=== PATIENT | male | born 1970 | race Caucasian/White ===

== ENCOUNTER 2018-01-20 13:39 | Emergency (ER) | END 2018-01-20 15:36 | disposition left against medical advice (07) ==

== ENCOUNTER 2019-02-23 05:54 | Observation (INO) | payer BC, OTHER ==
[~2019-02-23] VITALS: Ht 160 cm; Wt 92.5 kg
[2019-02-23] MEDS ORDERED: ASPIRIN 325 MG TAB PO STA (06:39)
--- NOTE | 2019-02-23 06:42 | ERD ---
ER Documentation Chief Complaint Chief Complaint CP X'S 1 DAY HPI 48-year-old male with history of diabetes, hypertension hyperlipidemia presents to the ED complaining of a 1 day history of intermittent episodes of sharp, nonradiating, substernal chest pain lasting approximately a minute. No accompanying nausea, vomiting, shortness of breath or diaphoresis. ROS All systems reviewed and are negative except as per history of present illness. Medications Home Meds Reported Medications Linagliptin/Metformin HCl (Jentadueto Xr 2.5 mg-1,000 mg) 1 Each Tab.bp.24h, 1 EACH PO QAM, TAB 02/23/19 Lisinopril* (Lisinopril*) 10 Mg Tablet, 10 MG PO DAILY, #30 TAB 02/23/19 Simvastatin* (Zocor*) 40 Mg Tablet, 40 MG PO QHS, #30 TAB 02/23/19 Allergies Allergies: Coded Allergies: No Known Allergy (Unverified , 02/23/19) PMhx/Soc Reviewed in chart. As per HPI. History of Surgery: No Anesthesia Reaction: No Hx Neurological Disorder: No Hx Respiratory Disorders: No Hx Cardiac Disorders: Yes (Hypertension) Hx Psychiatric Problems: No Hx Miscellaneous Medical Probl: Yes (Diabetes and hyperlipidemia) Hx Alcohol Use: Yes (Socially) Hx Substance Use: No Hx Tobacco Use: No FmHx Father: [place] at the age of 60. Leukemia. Physical Exam Vitals Vital Signs Date Temp Pulse Resp B/P (MAP) Pulse Ox O2 O2 Flow FiO2 Time Delivery Rate 02/23/19 77 16 140/89 98 Room Air 09:00 (106) 02/23/19 76 12 125/86 100 Room Air 08:15 (99) 02/23/19 78 14 128/93 98 Room Air 06:33 (105) 02/23/19 97.7 88 18 148/91 97 05:55 (110) Physical Exam Const: Mild distress, anxious Head: Atraumatic Eyes: Normal Conjunctiva ENT: Normal External Ears, Nose and Mouth. Neck: Full range of motion. No meningismus. No lymphadenopathy or tenderness. No JVD. Resp: Breath sounds equal and clear to auscultation bilaterally Cardio: Regular rate and rhythm, no murmurs Chest Wall: Nontender. No ecchymosis or bruising. Abd: Soft, non tender, non distended. No rebound or guarding. No masses or abnormal pulsations. Normal bowel sounds Skin: No petechiae or rashes Back: No midline or flank tenderness Ext: No cyanosis, or edema. Pulses 4+ in all extremities Neur: Awake and alert. Cranial nerves II through XII are grossly intact. No focal deficit observed. Psych: Cooperative. Patient appears anxious but not depressed. Result Diagram: 02/23/19 0643 02/23/19 0643 Results 24 hrs Laboratory Tests Test 02/23/19 06:43 White Blood Count 6.8 10^3/ul Red Blood Count 4.45 10^6/ul Hemoglobin 13.0 g/dl Hematocrit 39.0 % Mean Corpuscular Volume 87.6 fl Mean Corpuscular Hemoglobin 29.2 pg Mean Corpuscular Hemoglobin Concent 33.3 g/dl Red Cell Distribution Width 11.9 % Platelet Count 222 10^3/UL Mean Platelet Volume 9.1 fl Immature Granulocytes % 0.300 % Neutrophils % 66.8 % Lymphocytes % 20.4 % Monocytes % 9.3 % Eosinophils % 2.8 % Basophils % 0.4 % Nucleated Red Blood Cells % 0.0 /100WBC Immature Granulocytes # 0.020 10^3/ul Neutrophils # 4.5 10^3/ul Lymphocytes # 1.4 10^3/ul Monocytes # 0.6 10^3/ul Eosinophils # 0.2 10^3/ul Basophils # 0.0 10^3/ul Nucleated Red Blood Cells # 0.0 10^3/ul Sodium Level 142 mmol/L Potassium Level 4.5 mmol/L Chloride Level 106 mmol/L Carbon Dioxide Level 24 mmol/L Anion Gap 12 Blood Urea Nitrogen 11 mg/dl Creatinine 0.68 mg/dl Est Glomerular Filtrat Rate mL/min > 60 mL/min Glucose Level 150 mg/dl Hemoglobin A1c 6.7 % Calcium Level 10.1 mg/dl Troponin I 0.013 ng/ml Current Medications Medications Dose Sig/Aide Start Time Status Last (Trade) Ordered Route PRN Stop Time Admin Dose Reason Admin Aspirin 325 mg ONCE STAT 02/23/19 DC 02/23/19 (Aspirin) PO 06:39 02/23/19 06:58 06:40 Procedures/MDM DOCUMENTS REVIEWED: ED nurse, prior records LAB INTERPRETATION: EKG: Time: 0600. Sinus rhythm. Ventricular rate 86, normal IA and QRS intervals. No acute ST segment elevation or depression. No axis deviation or ectopy. My Interpretation: Normal EKG IMAGING: Cardiomegaly. No effusions or infiltrates. No mediastinal widening. My interpretation. MEDICAL DECISION MAKIN-year-old male with history of diabetes, hypertension hyperlipidemia presents to the ED complaining of a 1 day history of intermittent episodes of chest pain lasting approximately a minute. CBC negative for anemia, leukocytosis or thrombocytopenia. Chemistry negative for electrolyte abnormalities, renal insufficiency or hyperglycemia. Troponin is 0.013. EKG negative for ischemic changes, dysrhythmia or heart block. Chest x-ray reveals no evidence of pneumonia, pleural effusion or CHF. The patient presents with chest pain and I considered pulmonary embolism, aortic dissection, pneumothorax, gastritis/GERD, anxiety and musculoskeletal pain among other diagnoses. Evaluation for acute coronary syndrome was performed. The HEART score was utilized for risk stratification and found to be = 4. Patient with multiple risk factors presents with chest pain at moderate risk for cardiac etiology. Patient be admitted to telemetry observation for further risk stratification, evaluation and management. PATIENT CARE TRANSITIONED: Time: 08:42, Dr. Keller. Counseled patient regarding diagnosis, diagnostic results and plan for a dmission. Departure Diagnosis: Primary Impression: Chest pain with moderate risk for cardiac etiology Additional Impressions: Diabetes mellitus type 2 in obese Hypertension Hypertension type: essential hypertension Qualified Codes: I10 - Essential (primary) hypertension Hyperlipidemia Hyperlipidemia type: unspecified Qualified Codes: E78.5 - Hyperlipidemia, unspecified Condition: Serious STEPHANIE DIAZ MD February 23, 2019 06:42
[2019-02-23] MEDS ORDERED: SIMV40TA2 PO (09:09)
[2019-02-23] MEDS ORDERED: LISI10TA2 PO (09:11)
[2019-02-23] MEDS ORDERED: LINA1TAB7 PO (09:12)
[2019-02-23] MEDS ORDERED: ONDANSETRON 4 MG INJ IV PRN ×2 (09:30→15:00)
[2019-02-23] MEDS ORDERED: ACETAMINOPHEN 325 MG TAB PO PRN (09:30)
[2019-02-23] MEDS ORDERED: hydrALAzine 20 MG INJ IV PRN ×2 (15:00→21:30)
--- NOTE | 2019-02-23 16:00 | HP ---
DATE OF ADMISSION: 02/23/2019 PRESENTING COMPLAINT: Chest pain. HISTORY OF PRESENTING COMPLAINT: A 48-year-old male with a past medical history of high blood pressure and diabetes as well as dyslipidemia who presents to us with a 1-day history of worsening left-sided chest pain. The patient described symptoms more as pressure and a feeling of an elephant sitting on his chest. Does not have pain that is radiating to his arm or his jaw but he does have some shortness of breath with his symptoms. He has had similar symptoms in the past about a year ago, but usually the symptoms resolve on their own and he had no other problems until now. He was driving yesterday when he first felt the pain and even later when he was at home working on his computer, pain came in again. Overnight, the pain woke him up from his sleep. At that point, he decided to come to the emergency room today for evaluation. PAST MEDICAL HISTORY: 1. Hypertension. 2. Diabetes. 3. Dyslipidemia. 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 ALLERGIES: NO KNOWN DRUG ALLERGIES. SOCIAL HISTORY: Denies tobacco use but occasionally does the Hookah and drinks alcohol socially but denies illicit drug use. FAMILY HISTORY: Positive for [place] in his father at the age of 60. REVIEW OF SYSTEMS: A 12-point review of systems was done. Pertinent findings are as noted in the HPI. PHYSICAL EXAMINATION VITAL SIGNS: Temperature 97.7, pulse 76, respirations 12, blood pressure 125/86, saturations 100% on room air. GENERAL: Patient is alert and oriented, in no distress. HEENT: Head is normocephalic without evidence of trauma. Mucous membranes are moist. His right pupil is reactive. Left eye had trauma and he does have a prosthetic eye. Posterior pharynx clear of erythema and exudate. NECK: Supple, nontender, without JVD. CHEST: Clear to auscultation. Palpation of the chest wall does not reproduce pain. SKIN: Devoid of rash or jaundice. ABDOMEN: Soft, nontender, nondistended. LOWER EXTREMITIES: Negative for edema. NEUROLOGIC: He has no gross focal deficit. PSYCHIATRIC: Calm, cooperative with exam. LABORATORY VALUES: CBC: His hemoglobin is on the low side at 13, borderline unremarkable. Basic metabolic profile was unremarkable. So far, we have 2 negative troponins. IMAGING STUDIES: EKG was reviewed by myself showed normal sinus rhythm, normal rate. Chest x-ray reviewed also by myself showed mild cardiomegaly without any acute clinical findings. ASSESSMENT: A 48-year-old male who presents to us with recurrent left-sided chest pain with risk factors of high blood pressure and positive family history of premature coronary artery disease who has been admitted for: 1. Chest pain, rule out acute coronary syndrome (ACS). 2. Hypertension. 3. Diabetes mellitus type 2. 4. History of dyslipidemia. 5. Hookah use. 6. Positive family history of earlycoronary artery disease in his parent. 7. Prosthetic L eye PLAN: Admit to telemetry, get a cardiology consultation for stress test, a 2D echocardiogram, complete ACS rule out, also provide supportive care. We will also manage his comorbidities as listed, i.e., high blood pressure and diabetes and any further interventions will depend on his overall clinical course. This plan of care has been discussed with him in detail, questions have been answered. For further information and clarification, please review the patient's chart and my orders. Dictated By: EMMA KIDD MD BA/MAGO Conf#: [id number] DID#: [id number]
[2019-02-23 18:52] VITALS: PULSE 87
[2019-02-23 20:00] VITALS: BP 135/81; PULSE 74; PULSE 82; RESP 20
[2019-02-23] MEDS ORDERED: NON-FORMULARY/PATIENT OWN MED (Simvastatin* (Zocor*) 40 MG) PO SCH (21:00)
[2019-02-23] MEDS: INSULIN ASPART [NOVOLOG] 3 ML PEN SC SCH (21:00)
[2019-02-23] MEDS ORDERED: ATORVASTATIN 10 MG TAB PO SCH (21:00)
[2019-02-23] MEDS ORDERED: ATORVASTATIN 20 MG TAB PO SCH (21:00)
[2019-02-23] MEDS: FAMOTIDINE 20 MG TAB PO SCH (21:19)
[2019-02-23 22:07] VITALS: Ht 160 cm; Wt 92.5 kg
--- NOTE | 2019-02-23 23:46 | CONS ---
DATE OF ADMISSION: 02/23/2019 DATE OF CONSULTATION: 02/23/2019 REASON FOR CONSULTATION: Chest pain, assess for acute coronary syndrome. REQUESTING PHYSICIAN: Dr. Emma Kidd from the hospitalist service. HISTORY OF PRESENT ILLNESS: Mr. Mcconnell is a 48-year-old male with a history of hypertension, diabe rm mellitus and dyslipidemia who presents with 1 day of substernal chest pain, describes a pressure- like pain with as though someone is sitting on his chest with some radiation to his arm and inability to catch his breath. 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 The patient presented to the emergency department. Upon arrival, temperatu re 97.7, blood pressure 140/91, pulse 88, respiratory rate 18 and sat 97%. The patient's labs reveal ed a white count 6.8, hemoglobin 13 and platelet count 222. Sodium 142, potassium 4.5, creatinine 0. 6, BUN 11. Troponin negative. Hemoglobin A1c of 6.7. The patient underwent a chest x-ray revealing mild cardiomegaly. The patient's electrocardiogram revealed normal sinus rhythm, rate of 86, normal axis and intervals, nonspecific ST and T abnormalities. The patient was treated with aspirin and no w is admitted to the floor. PAST MEDICAL HISTORY: As above in HPI. MEDICATIONS CURRENTLY IN HOSPITAL: 1. Zestril 10 mg daily. 2. Aspirin 81 mg daily. 3. Lantus. 4. Pepcid 20 mg b.i.d. 5. Lipitor 20 mg at bedtime. 6. Insulin sliding scale. 7. Zofran p.r.n. 8. Hydralazine p.r.n. 9. Tylenol p.r.n. ALLERGIES: NO KNOWN DRUG ALLERGIES. SOCIAL HISTORY: No current tobacco, social ETOH, no illicit drug use. FAMILY HISTORY: No sudden cardiac or early CAD. REVIEW OF SYSTEMS: As above in HPI. CONSTITUTIONAL: No fevers, chills. PULMONARY: No current shortness of breath. CARDIOVASCULAR: Chest pain. GASTROINTESTINAL: No vomiting. GENITOURINARY: No hematuria. MUSCULOSKELETAL: Degenerative joint disease. PSYCHIATRIC: No documented psych history. NEUROLOGIC: No documented history of CVA. PHYSICAL EXAMINATION VITAL SIGNS: Temperature of 98.9, blood pressure 127/89, pulse 83, respiratory rate 16 and satting 9 9%. GENERAL: The patient is alert, awake, in no acute distress. NECK: JVP approximately 8 to 9 cm of water. CHEST: Fair air movement throughout. HEART: Regular rate and rhythm. Normal S1, S2, I/ systolic murmur, nondisplaced PMI. ABDOMEN: Positive bowel sounds, soft. EXTREMITIES: No significant pitting edema, 1+ pulses bilateral posterior tibial. LABORATORY DATA: Most recently from today, with a troponin negative x2. IMAGING STUDIES: As above in HPI. No further imaging studies for my review at this time. ECG: As above in HPI. No further electrocardiograms for my review at this time. IMPRESSION: 1. Chest pain, assess for acute coronary syndrome. 2. Hypertension, reasonable control. 3. Dyslipidemia. 4. Diabetes mellitus. 5. Anemia, mild. RECOMMENDATIONS: 1. At this time, would admit patient to telemetry monitoring to follow rhythm and rates closely. 2. Complete the patient's rule out for myocardial infarction to ensure the patient's chest pain was not due to an acute coronary syndrome such as acute myocardial infarction. 3. Give patient's sublingual nitroglycerin for any recurrent episodes of chest pain. 4. Continue the patient's current statin therapy and adjust it according to a fasting lipid panel ch ecked. 5. Continue the patient's Zestril at this time and continue the patient's aspirin for prophylaxis fr om cardiovascular events. 6. We will follow the patient's 2D echo ordered for assessment of ejection fraction, wall motion, ru le out any major valve abnormalities and given the patient's multiple cardiac risk factors, I believe the patient will benefit from further risk stratification inpatient and if the patient ruled out for myocardial infarction, we will place patient in for a stress test to take place in the morning. Thank you for allowing me to take part in the care of this patient. I will continue to follow very c losely with you. Further recommendations will be made as the patient progresses through his [facility] clinical course. Dictated By: RONNA WOMACK/MAGO Conf#: [id number] DID#: [id number] CC: EMMA KIDD MD;*EndCC*
[2019-02-24] VITALS (11 sets, daily range): BP systolic 98–123; BP diastolic 55–83; PULSE 66–94; RESP 18–20
[2019-02-24] MEDS ORDERED: ACCU-CHEK XX SCH (02:00)
[2019-02-24] MEDS: INSULIN ASPART [NOVOLOG] 3 ML PEN SC SCH ×3 (07:55→17:29)
[2019-02-24] MEDS ORDERED: INSULIN GLARGINE [LANTus] (100 UNITS/ML) SYG SC SCH (08:00)
[2019-02-24] MEDS: FAMOTIDINE 20 MG TAB PO SCH (08:17)
[2019-02-24] MEDS ORDERED: LISINOPRIL 10 MG TAB PO SCH (09:00)
[2019-02-24] MEDS ORDERED: ASPIRIN (EC) 81 MG TAB PO SCH (09:00)
[2019-02-24] MEDS ORDERED: REGADENOSON 0.4 MG/5 ML SYG ONE (12:17)
--- NOTE | 2019-02-24 12:28 | CONS ---
Assessment/Plan Assessment/Plan Hospital Course (Demo Recall) IMPRESSION: 1. Chest pain, assess for acute coronary syndrome.-neg trop x 3. Intermittent chest pain since admit 2. Hypertension, reasonable control. 3. Dyslipidemia. 4. Diabetes mellitus. 5. Anemia, mild. Recc: -Tele -Contin ACEI/statin -lexiscan stress test today -add oral nitrates Consultation Date/Type/Reason Admit Date/Time February 23, 2019 at 09:04 Initial Consult Date 02/23/19 Type of Consult Cardiology Reason for Consultation chest pain Requesting Provider: EMMA KIDD Date/Time of Note DATE: 02/24/19 TIME: 12:25 Exam/Review of Systems Vital Signs Vitals Vital Signs Date Temp Pulse Resp B/P (MAP) Pulse Ox O2 O2 Flow FiO2 Time Delivery Rate 02/24/19 70 08:00 02/24/19 98.3 18 123/83 95 Room Air 07:10 (96) Intake and Output 02/23/19 02/23/19 02/24/19 1515:00 23:00 07:00 IntakeIntake Total 360 ml BalanceBalance 360 ml Exam Exam Review of Systems: CONSTITUTIONAL: No fevers, chills. PULMONARY: No sob CARDIOVASCULAR: No chest pain/palpitations GASTROINTESTINAL: No nausea/vomiting. GENITOURINARY: No hematuria/dysuria. MUSCULOSKELETAL: No myagias/arthalgias. PSYCHIATRIC: The patient denies depression. NEUROLOGIC: No weakness Constitutional: alert Psych: no complaints Head: normocephalic ENMT: mucosa pink and moist Neck: supple, jvd (9 cm water) Respiratory: clear to auscultation Cardiovascular: regular rate and rhythm Gastrointestinal: soft, non-tender Musculoskeletal: muscle tone (normal) Extremities: edema (none) Neurological: other (No focal deficits) Labs Result Diagram: 02/24/19 0605 02/24/19 0605 Results 24hrs Laboratory Tests Test 02/23/19 12:51 02/23/19 17:32 02/23/19 19:01 02/23/19 20:25 Creatine Kinase 152 135 Creatine Kinase Index 0.8 1.0 Creatinine Kinase MB 1.25 1.32 (Mass) Troponin I < 0.012 < 0.012 Bedside Glucose 163 117 Test 02/24/19 06:05 02/24/19 08:19 02/24/19 10:52 White Blood Count 5.9 Red Blood Count 4.34 L Hemoglobin 12.6 L Hematocrit 38.0 L Mean Corpuscular Volume 87.6 Mean Corpuscular 29.0 Hemoglobin Mean Corpuscular 33.2 Hemoglobin Concent Red Cell Distribution 11.9 Width Platelet Count 201 Mean Platelet Volume 9.1 Immature Granulocytes % 0.300 Neutrophils % 60.7 Lymphocytes % 26.2 Monocytes % 9.4 Eosinophils % 2.9 Basophils % 0.5 Nucleated Red Blood 0.0 Cells % Immature Granulocytes # 0.020 Neutrophils # 3.6 Lymphocytes # 1.5 Monocytes # 0.6 Eosinophils # 0.2 Basophils # 0.0 Nucleated Red Blood 0.0 Cells # Sodium Level 139 Potassium Level 4.5 Chloride Level 104 Carbon Dioxide Level 26 Anion Gap 9 Blood Urea Nitrogen 13 Creatinine 0.75 Est Glomerular Filtrat > 60 Rate mL/min Glucose Level 137 Calcium Level 9.1 Magnesium Level 1.9 Total Bilirubin 0.7 Direct Bilirubin 0.00 Indirect Bilirubin 0.7 Aspartate Amino 23 Transf (AST/SGOT) Alanine 27 Aminotransferase (ALT/SG PT) Alkaline Phosphatase 40 L Total Protein 7.2 Albumin 4.2 Triglycerides Level 519 H Cholesterol Level 234 H LDL Cholesterol, 97 Calculated HDL Cholesterol 33 Cholesterol/HDL Ratio 7.0 Thyroid Stimulating 1.460 Hormone (TSH) Bedside Glucose 141 128 Medications Medications Current Medications Lisinopril (Zestril) 10 mg DAILY PO Last administered on 02/24/19at 08:18; Admin Dose 10 MG; Start 02/24/19 at 09:00 Insulin Glargine (Lantus) 18 units DAILY@0800 SC ; Start 02/24/19 at 08:00 Diagnostic Test (Pha) (Accu-Chek) 1 02 XX ; Start 02/24/19 at 02:00 Insulin Aspart (Novolog Insulin Pen) NOVOLOG *MILD* ALGORITHM WITH MEALS BEDTIME SC ; Start 02/23/19 at 18:00 Famotidine (Pepcid) 20 mg BID PO Last administered on 02/24/19at 08:17; Admin Dose 20 MG; Start 02/23/19 at 21:00 Ondansetron HCl (Zofran Inj) 4 mg Q6H PRN IV NAUSEA AND/OR VOMITING; Start 02/23/19 at 15:00 Aspirin (Halfprin) 81 mg DAILY PO Last administered on 02/24/19at 08:17; Admin Dose 81 MG; Start 02/24/19 at 09:00 Atorvastatin Calcium (Lipitor) 20 mg DAILY@21 PO Last administered on 02/23/19at 21:19; Admin Dose 20 MG; Start 02/23/19 at 21:00 Hydralazine HCl (Apresoline) 10 mg Q4 PRN IV sbp>160mmhg; Start 02/23/19 at 21:30 RONNA ALVAREZ February 24, 2019 12:28
[2019-02-24] MEDS ORDERED: GLUCOSE GEL 15 GRAM TUBE BUCCAL PRN (13:00)
[2019-02-24] MEDS ORDERED: GLUCAGON 1 MG INJ IM PRN (13:00)
[2019-02-24] MEDS ORDERED: GLUCOSE GEL 15 GRAM TUBE PO PRN ×2 (13:00)
[2019-02-24] MEDS ORDERED: DEXTROSE 50% 50 ML SYRINGE IV PRN ×2 (13:00)
[2019-02-24] MEDS ORDERED: ISOSORBIDE DINITRATE 10 MG TAB PO SCH (13:00)
--- NOTE | 2019-02-24 13:15 | PN ---
Date/Time of Note Date/Time of Note DATE: 02/24/19 TIME: 13:14 Assessment/Plan VTE Prophylaxis Risk score (from Ns)>0 risk: 2 SCD applied (from Ns): Yes Pharmacological prophylaxis: NA/contraindicated Pharm contraindication: low risk/ambulating Lines/Catheters IV Catheter Type (from Nrs): Peripheral IV Urinary Cath still in place: No Assessment/Plan Hospital Course A 48-year-old male who presents to us with recurrent left-sided chest pain with risk factors of high blood pressure and positive family history of premature coronary artery disease who has been admitted for: 1. Chest pain, rule out acute coronary syndrome (ACS). 2. Hypertension. 3. Diabetes mellitus type 2. 4. Dyslipidemia. 5. Hookah use. 6. Positive family history of premature coronary artery disease in his parent. Plan: lexiscan stress test today d/c home on asa/ nitrates / statin if negative. Counselled to quit Hookah use Result Diagram: 02/24/1960402/24/19604 Results 24hrs Laboratory Tests Test 02/23/19 17:32 02/23/19 19:01 02/23/19 20:25 02/24/19 06:05 Bedside Glucose 163 117 Creatine Kinase 135 Creatine Kinase Index 1.0 Creatinine Kinase MB 1.32 (Mass) Troponin I < 0.012 White Blood Count 5.9 Red Blood Count 4.34 L Hemoglobin 12.6 L Hematocrit 38.0 L Mean Corpuscular Volume 87.6 Mean Corpuscular 29.0 Hemoglobin Mean Corpuscular 33.2 Hemoglobin Concent Red Cell Distribution 11.9 Width Platelet Count 201 Mean Platelet Volume 9.1 Immature Granulocytes % 0.300 Neutrophils % 60.7 Lymphocytes % 26.2 Monocytes % 9.4 Eosinophils % 2.9 Basophils % 0.5 Nucleated Red Blood 0.0 Cells % Immature Granulocytes # 0.020 Neutrophils # 3.6 Lymphocytes # 1.5 Monocytes # 0.6 Eosinophils # 0.2 Basophils # 0.0 Nucleated Red Blood 0.0 Cells # Sodium Level 139 Potassium Level 4.5 Chloride Level 104 Carbon Dioxide Level 26 Anion Gap 9 Blood Urea Nitrogen 13 Creatinine 0.75 Est Glomerular Filtrat > 60 Rate mL/min Glucose Level 137 Calcium Level 9.1 Magnesium Level 1.9 Total Bilirubin 0.7 Direct Bilirubin 0.00 Indirect Bilirubin 0.7 Aspartate Amino 23 Transf (AST/SGOT) Alanine 27 Aminotransferase (ALT/SG PT) Alkaline Phosphatase 40 L Total Protein 7.2 Albumin 4.2 Triglycerides Level 519 H Cholesterol Level 234 H LDL Cholesterol, 97 Calculated HDL Cholesterol 33 Cholesterol/HDL Ratio 7.0 Thyroid Stimulating 1.460 Hormone (TSH) Test 02/24/19 08:19 02/24/19 10:52 Bedside Glucose 141 128 Subjective 24 Hr Interval Summary Free Text/Dictation no more CP Exam/Review of Systems Exam Vitals Vital Signs Date Temp Pulse Resp B/P (MAP) Pulse Ox O2 O2 Flow FiO2 Time Delivery Rate 02/24/19 70 08:00 02/24/19 98.3 18 123/83 95 Room Air 07:10 (96) Intake and Output 02/23/19 02/23/19 02/24/19 1414:59 22:59 06:59 IntakeIntake Total 360 ml BalanceBalance 360 ml Exam General: A&O x3, answering questions appropriately HEENT: NC/ AT. PERRL. EOM intact Neck: supple CVS: S1, S2, RRR. no murmurs. no pain on chest wall palpation Lungs: CTA b/l. no wheezing or rhonchi Abd: soft, nontender, +BS Ext: moving all extremities skin: no rashes Results Results 24hrs Laboratory Tests Test 02/23/19 17:32 02/23/19 19:01 02/23/19 20:25 02/24/19 06:05 Bedside Glucose 163 117 Creatine Kinase 135 Creatine Kinase Index 1.0 Creatinine Kinase MB 1.32 (Mass) Troponin I < 0.012 White Blood Count 5.9 Red Blood Count 4.34 L Hemoglobin 12.6 L Hematocrit 38.0 L Mean Corpuscular Volume 87.6 Mean Corpuscular 29.0 Hemoglobin Mean Corpuscular 33.2 Hemoglobin Concent Red Cell Distribution 11.9 Width Platelet Count 201 Mean Platelet Volume 9.1 Immature Granulocytes % 0.300 Neutrophils % 60.7 Lymphocytes % 26.2 Monocytes % 9.4 Eosinophils % 2.9 Basophils % 0.5 Nucleated Red Blood 0.0 Cells % Immature Granulocytes # 0.020 Neutrophils # 3.6 Lymphocytes # 1.5 Monocytes # 0.6 Eosinophils # 0.2 Basophils # 0.0 Nucleated Red Blood 0.0 Cells # Sodium Level 139 Potassium Level 4.5 Chloride Level 104 Carbon Dioxide Level 26 Anion Gap 9 Blood Urea Nitrogen 13 Creatinine 0.75 Est Glomerular Filtrat > 60 Rate mL/min Glucose Level 137 Calcium Level 9.1 Magnesium Level 1.9 Total Bilirubin 0.7 Direct Bilirubin 0.00 Indirect Bilirubin 0.7 Aspartate Amino 23 Transf (AST/SGOT) Alanine 27 Aminotransferase (ALT/SG PT) Alkaline Phosphatase 40 L Total Protein 7.2 Albumin 4.2 Triglycerides Level 519 H Cholesterol Level 234 H LDL Cholesterol, 97 Calculated HDL Cholesterol 33 Cholesterol/HDL Ratio 7.0 Thyroid Stimulating 1.460 Hormone (TSH) Test 02/24/19 08:19 02/24/19 10:52 Bedside Glucose 141 128 Medications Medication Current Medications Lisinopril (Zestril) 10 mg DAILY PO Last administered on 02/24/19at 08:18; Admin Dose 10 MG; Start 02/24/19 at 09:00 Insulin Glargine (Lantus) 18 units DAILY@0800 SC ; Start 02/24/19 at 08:00 Diagnostic Test (Pha) (Accu-Chek) 1 ea 02 XX ; Start 02/24/19 at 02:00 Insulin Aspart (Novolog Insulin Pen) NOVOLOG *MILD* ALGORITHM WITH MEALS BEDTIME SC ; Start 02/23/19 at 18:00 Famotidine (Pepcid) 20 mg BID PO Last administered on 02/24/19at 08:17; Admin Dose 20 MG; Start 02/23/19 at 21:00 Ondansetron HCl (Zofran Inj) 4 mg Q6H PRN IV NAUSEA AND/OR VOMITING; Start 02/23/19 at 15:00 Aspirin (Halfprin) 81 mg DAILY PO Last administered on 02/24/19at 08:17; Admin Dose 81 MG; Start 02/24/19 at 09:00 Atorvastatin Calcium (Lipitor) 20 mg DAILY@21 PO Last administered on 02/23/19at 21:19; Admin Dose 20 MG; Start 02/23/19 at 21:00 Hydralazine HCl (Apresoline) 10 mg Q4 PRN IV sbp>160mmhg; Start 02/23/19 at 21:30 Isosorbide Dinitrate (Isordil) 10 mg TID PO ; Start 02/24/19 at 13:00 Miscellaneous Information 1 ea NOTE XX ; Start 5/2/19 at 13:00 Glucose (Glutose) 15 gm Q15M PRN PO DECREASED GLUCOSE; Start 02/24/19 at 13:00 Glucose (Glutose) 22.5 gm Q15M PRN PO DECREASED GLUCOSE; Start 02/24/19 at 13:00 Dextrose (D50w Syringe) 25 ml Q15M PRN IV DECREASED GLUCOSE; Start 02/24/19 at 13:00 Dextrose (D50w Syringe) 50 ml Q15M PRN IV DECREASED GLUCOSE; Start 02/24/19 at 13:00 Glucagon (Glucagen) 1 mg Q15M PRN IM DECREASED GLUCOSE; Start 02/24/19 at 13:00 Glucose (Glutose) 15 gm Q15M PRN BUCCAL DECREASED GLUCOSE; Start 02/24/19 at 13:00 EMMA KIDD February 24, 2019 13:15
[2019-02-24] MEDS ORDERED: ACETAMINOPHEN 325 MG TAB PO PRN (14:30)
[2019-02-24] MEDS ORDERED: ATOR40TA68 PO (15:12)
[2019-02-24] MEDS ORDERED: ISOS10TA2 PO (15:12)
[2019-02-24] MEDS ORDERED: ASPI-1044 PO (15:12)
--- NOTE | 2019-02-24 15:14 | PDOCDIS ---
Discharge Instructions CONDITION [id number] Patient Condition: Thxut2o Stable HOME CARE INSTRUCTIONS: [id number] Diet Instructions: Uhhiz9h Low Fat /Cholesterol [id number] Special Diet: Wxian0q diabetic diet ACTIVITY: [id number] Activity Restrictions: Dcokl9g Slowly Increase Activity Rest between Activity FOLLOW UP/APPOINTMENTS Follow-up Plan 1. you may followup with Dr Gonzalez for Cardiology Please followup with Dr Gonzalez for cardiology Name, Degree: Robb Gonzalez MD Specialty: Cardiology Comments: Office Address: [address] [place] [id number] Office Office Assistant Speech Language Pathologist: Ashlie Vera 2. Also Followup with your primary doctor within the next 1-2 weeks. If you don't have one please let someone know, we can give you resources that may help you pick one. You may call Dr Len Hollis's office. he's accepting new patients Name, Degree: Len Hollis MD Specialty: Internal Medicine Comments: Office Address: [address] [place] [id number] Office Office You may also call your insurance company to assign one to you. 3. Review your medication list with your nurse before leaving and if you need new prescriptions please let your nurse know. 4. I may have made changes to your home medications or given you new prescriptions, please let your primary doctor know as well. 5. Stay compliant with your medications and report any side effects to your PCP or pharmacist. 6. Return to the ER if you have any concerns and cannot reach your doctors or call your insurance company, they usually have a nurse that can help you. EMMA KIDD February 24, 2019 15:14
--- NOTE | 2019-02-24 15:16 | DS ---
Date/Time of Note Date/Time of Note DATE: 02/24/19 TIME: 15:14 Discharge Summary Admission/Discharge Info Admit Date/Time February 23, 2019 at 09:04 Discharge Date/Time Discharge Diagnosis 1. Chest pain, rule out acute coronary syndrome (ACS): resolved 2. Hypertension. 3. Diabetes mellitus type 2. 4. Dyslipidemia. 5. Hookah use. 6. Positive family history of premature coronary artery disease in his parent. . Patient Condition: Stable Consults Lisa Procedures See hospital course . Hospital Course A 48-year-old male who presents to us with recurrent left-sided chest pain with risk factors of high blood pressure and positive family history of premature coronary artery disease who has been admitted for: 1. Chest pain, rule out acute coronary syndrome (ACS). 2. Hypertension. 3. Diabetes mellitus type 2. 4. Dyslipidemia. 5. Hookah use. 6. Positive family history of premature coronary artery disease in his parent. Plan: Negative lexiscan stress test d/c home on asa/ nitrates / statin if negative. Counselled to quit Hookah use . Home Meds Reported Medications Linagliptin/Metformin HCl (Jentadueto Xr 2.5 mg-1,000 mg) 1 Each Tab.bp.24h, 1 EACH PO QAM, TAB 02/23/19 Lisinopril* (Lisinopril*) 10 Mg Tablet, 10 MG PO DAILY, #30 TAB 02/23/19 Simvastatin* (Zocor*) 40 Mg Tablet, 40 MG PO QHS, #30 TAB 02/23/19 Follow-up Plan 1. you may followup with Dr Gonzalez for Cardiology Please followup with Dr Gonzalez for cardiology Name, Degree: Robb Gonzalez MD Specialty: Cardiology Comments: Office Address: [id number] [place] [id number] Office Office Universal Banker: Ashlie Jody 2. Also Followup with your primary doctor within the next 1-2 weeks. If you don't have one please let someone know, we can give you resources that may help you pick one. You may call Dr Len Hollis's office. he's accepting new patients Name, Degree: Len Hollis MD Specialty: Internal Medicine Comments: Office Address: [address] [place] [address] [address] [place] [address] Office Office You may also call your insurance company to assign one to you. 3. Review your medication list with your nurse before leaving and if you need new prescriptions please let your nurse know. 4. I may have made changes to your home medications or given you new prescriptions, please let your primary doctor know as well. 5. Stay compliant with your medications and report any side effects to your PCP or pharmacist. 6. Return to the ER if you have any concerns and cannot reach your doctors or call your insurance company, they usually have a nurse that can help you. Primary Care Provider Not On Staff Doctor Time spent on discharge: > 30 minutes Pending Labs Laboratory Tests Test 02/23/19 17:32 02/23/19 19:01 02/23/19 20:25 02/24/19 06:05 Bedside 163 117 Glucose mg/dL (70-220) mg/dL (70-220) Creatine 135 Kinase IU/L (23-200) Creatine Kinase 1.0 Index Creatinine 1.32 Kinase MB ng/ml (0.0-2.4 (Mass) ) Troponin I < 0.012 ng/ml (0.000-0 .120) White Blood 5.9 Count 10^3/ul (4.8-1 0.8) Red Blood 4.34 Count 10^6/ul (4.70- 6.10) Hemoglobin 12.6 g/dl (14.0-18. 0) Hematocrit 38.0 % (42.0-52.0) Mean 87.6 Corpuscular fl (82.0-101.0 Volume ) Mean 29.0 Corpuscular pg (29.0-33.0) Hemoglobin Mean 33.2 Corpuscular g/dl (32.0-37. Hemoglobin Conc 0) ent Red Cell 11.9 Distribution % (11.5-14.5) Width Platelet Count 201 10^3/UL (140-4 15) Mean Platelet 9.1 Volume fl (7.4-10.4) Immature 0.300 Granulocytes % % (0.001-0.429 ) Neutrophils % 60.7 % (39.0-77.0) Lymphocytes % 26.2 % (15.0-51.0) Monocytes % 9.4 % (0.0-11.0) Eosinophils % 2.9 % (0.0-7.0) Basophils % 0.5 % (0.0-2.0) Nucleated Red 0.0 Blood Cells % /100WBC (0.0-0 .0) Immature 0.020 Granulocytes # 10^3/ul (0.0-0 .031) Neutrophils # 3.6 10^3/ul (1.6-7 .5) Lymphocytes # 1.5 10^3/ul (0.8-2 .9) Monocytes # 0.6 10^3/ul (0.3-0 .9) Eosinophils # 0.2 10^3/ul (0.0-0 .5) Basophils # 0.0 10^3/ul (0.0-0 .1) Nucleated Red 0.0 Blood Cells # 10^3/ul (0.0-0 .0) Sodium Level 139 mmol/L (135-14 4) Potassium 4.5 Level mmol/L (3.5-5. 1) Chloride Level 104 mmol/L (97-110 ) Carbon Dioxide 26 Level mmol/L (21-31) Anion Gap 9 (5-13) Blood Urea 13 Nitrogen mg/dl (7-20) Creatinine 0.75 mg/dl (0.61-1. 24) Est Glomerular > 60 Filtrat mL/min (>60) Rate mL/min Glucose Level 137 mg/dl (70-220) Calcium Level 9.1 mg/dl (8.4-10. 2) Magnesium 1.9 Level mg/dl (1.7-2.5 ) Total 0.7 Bilirubin mg/dl (0.2-1.3 ) Direct 0.00 Bilirubin mg/dl (0.00-0. 20) Indirect 0.7 Bilirubin mg/dl (0-1.1) Aspartate Amino 23 Transf (AST/SGO IU/L (15-46) T) Alanine 27 Aminotransferas IU/L (13-69) e (ALT/SGPT) Alkaline 40 Phosphatase IU/L (42-121) Total Protein 7.2 g/dl (6.1-8.1) Albumin 4.2 g/dl (3.3-4.9) Triglycerides 519 Level mg/dl (0-149) Cholesterol 234 Level mg/dl (100-200 ) LDL 97 mg/dl Cholesterol, Calculated HDL 33 Cholesterol mg/dl (28-71) Cholesterol/HDL 7.0 RATIO Ratio Thyroid 1.460 Stimulating MIU/L (0.465-4 Hormone (TSH) .680) Test 02/24/19 08:19 02/24/19 10:52 Bedside 141 128 Glucose mg/dL (70-220) mg/dL (70-220) EMMA KIDD February 24, 2019 15:16
--- NOTE | 2019-02-24 18:24 | RADRPT ---
Echocardiogram Report Patient Name: PASHA MENJIVARPatient ID: [id number] : 1970 (48y 3m)Study Date: 02/24/2019 7:28:43 AM Gender: MAccession #: [id number] Tech: Paul Robertson RUST Location: 526 Ref.Physician: EMMA KIDD Height(Cm): BSA: Weight(Kg): Quality: AdequateAccount #: Procedures: Echocardiographic Report: Transthoracic echocardiogram with complete 2D, M-Mode, and doppler examination. Indications: Chest Pain. Measurements: 2D/M Mode Doppler Measurement Value Normal Range Measurement Value Normal Range LVIDd 2D 4.0 [ 4.2 - 5.8 ] cm AV Peak Marshall 1.3 [ 100.0 - 170.0 ] cm/sec LVIDs 2D 2.6 [ 2.5 - 4.0 ] cm AV Peak PG 7.0 [ 2.0 - 9.0 ] mmHg LVPWd 2D 1.1 [ 0.6 - 1.0 ] cm LVOT Peak Marshall 1.0 [ 70.0 - 110.0 ] cm/sec IVSd 2D 1.2 [ 0.6 - 1.0 ] cm LVOT Peak PG 4.0 [ 2.0 - 6.0 ] mmHg AoR Diam 2D 3.0 [ 2.6 - 3.4 ] cm MV E Peak Marshall 0.7 [ 60.0 - 130.0 ] cm/sec EDV 2D 71.3 [ 62.0 - 150.0 ] ml MV A Peak Marshall 0.6 [ 100.0 - 120.0 ] cm/sec ESV 2D 24.4 [ 21.0 - 61.0 ] ml MV E/A 1.1 [ 0.8 - 1.5 ] ratio EF 2D 65.8 [ 52.0 - 72.0 ] percent MV Decel Time 165 [ 104 - 258 ] msec LA Dimen 2D 3.0 [ 3.0 - 4.0 ] cm Lat E` Marshall 0.1 [ 10.0 - 15.0 ] cm/sec Lateral E/E` 6.7 [ 1.0 - 2.0 ] ratio MV E/A 1.1 [ 0.8 - 1.5 ] ratio TR Peak Marshall 2.2 [ 100.0 - 280.0 ] cm/sec TR Peak PG 19.0 mmHg RVSP 22.0 [ 10.0 - 36.0 ] mmHg RA Pressure 3.0 mmHg Findings: Left Ventricle: Normal left ventricular systolic function. Normal left ventricular cavity size. Mild concentric left ventricular hypertrophy. Ejection fraction is visually estimated at 55 %. Tissue Doppler/Mitral Doppler indices are within normal limits. Right Ventricle: Normal right ventricular size. Normal right ventricular systolic function. Left Atrium: The left atrium is normal in size. Right Atrium: The right atrium is normal in size. Mitral Valve: Normal appearance and function of the mitral valve with trace physiologic regurgitation. Aortic Valve: Normal appearance of the aortic valve. No significant aortic stenosis or insufficiency. Tricuspid Valve: Normal appearance of the tricuspid valve. Estimated peak PA systolic pressure 22 mmHg. There is trace tricuspid regurgitation. Pulmonic Valve: Normal pulmonic valve appearance. Pericardium: Normal pericardium with no significant pericardial effusion. Aorta: Normal aortic root. IVC: Normal size and normal respiratory collapse consistent with normal right atrial pressure. Conclusions: Normal left ventricular systolic function. Normal left ventricular cavity size. Mild concentric left ventricular hypertrophy. Ejection fraction is visually estimated at 55 %. Tissue Doppler/Mitral Doppler indices are within normal limits. Normal appearance and function of the mitral valve with trace physiologic regurgitation. Normal appearance of the tricuspid valve. Estimated peak PA systolic pressure 22 mmHg. There is trace tricuspid regurgitation. Electronically Signed By: Robb Gonzalez 2019-02-24 18:23:33 PDT
--- NOTE | 2019-02-24 19:04 | CARRPT ---
DATE OF PROCEDURE: 02/24/2019 REASON FOR STRESS TESTING: Chest pain, assess for ischemia. BASELINE VITAL SIGNS AND ELECTROCARDIOGRAM: Pulse 74, blood pressure 126/78. Electrocardiogram was normal sinus rhythm at a rate of 74, normal axis, normal intervals, inferior T-wave inversion. PROCEDURE: The patient underwent standard Lexiscan infusion protocol over 10 seconds followed by ___ __. The patient's test was stopped due to completion of protocol. Maximal achieved blood pressure d uring the test was 156/92. Maximal achieved heart rate during test was 114. ELECTROCARDIOGRAM FINDINGS: The patient any new Lexiscan-induced ST or T-wave changes from bas uzma abnormalities. No documented PVCs. SYMPTOMS: The patient had slight shortness of breath during stress test that resolved in recovery. IMPRESSION: 1. No Lexiscan-induced ST or T-wave changes from baseline abnormalities or diagnostic for ischemia. 2. No complaints of chest pain during stress testing. Positive shortness of breath, which resolved in recovery. 3. No documented premature ventricular contractions during stress chest pain. 4. Report of nuclear images to follow in separate dictation. Dictated By: RONNA WOMACK/MAGO Conf#: [id number] DID#: [id number]
== END 2019-02-24 18:34 | disposition home or self-care (01) ==
LOC: E/R 05:54 → TEL 09:04 → SUATTDRO 14:42
PROVIDERS: ADMIT Family Medicine; ATTEND Family Medicine
DX: R07.9 Chest pain, unspecified (principal); E11.9 Type 2 diabetes mellitus without complications; I10 Essential (primary) hypertension; E78.5 Hyperlipidemia, unspecified; Z79.84 Long term (current) use of oral hypoglycemic drugs; F17.290 Nicotine dependence, other tobacco product, uncomplicated; D64.9 Anemia, unspecified; Z97.0 Presence of artificial eye; Z82.49 Family history of ischemic heart disease and other diseases of the circulatory system
CPT/HCPCS: 36415; 71045; 78452; 80048; 80061; 80076; 82550; 82553; 82962; 83036; 83735; 84443; 84484; 85025; 93005; 93017; 93306; 99285; A9500; A9505; G0378; J1815; J2785

== ENCOUNTER 2019-03-05 17:08 | Emergency (ER) | payer SELFPAY ==
[~2019-03-05] VITALS: Ht 160 cm; Wt 90.7 kg
[~2019-03-05 17:08] MED LIST: ASPI-1044 PO; ATOR40TA68 PO; ISOS10TA2 PO; LINA1TAB7 PO; LISI10TA2 PO
[2019-03-05 17:10] VITALS: BP 146/92; PULSE 93; RESP 18; Ht 160 cm; Wt 90.7 kg
== END 2019-03-05 19:33 | disposition left against medical advice (07) ==
LOC: E/R 17:08
DX: Z53.21 Procedure and treatment not carried out due to patient leaving prior to being seen by health care provider (principal)
CPT/HCPCS: 93005

== ENCOUNTER 2019-03-15 18:49 | Inpatient (IN) | payer OTHER ==
[~2019-03-15] VITALS: Ht 160 cm; Wt 89.1 kg
--- NOTE | 2019-03-15 20:00 | ERD ---
ER Documentation Chief Complaint Chief Complaint NON-RADIATING CHEST PAIN X2DAYS; NO N/V, NO SOB HPI The patient is a 48-year-old male, presenting to the ER because of substernal chest pain intermittently for the last week weeks, no radiation, no aggravating/relieving factor. He was admitted on February 23, 2019 and had extensive studies including ECHO and negative Lexiscan stress test. However the pain is persistent and therefore he came to emergency department. He smokes Hookah, denies drinking Past medical history: Diabetes mellitus, hypertension, dyslipidemia Past surgical history: None ROS All systems reviewed and are negative except as per history of present illness. Medications Home Meds Active Scripts Aspirin Delayed Release (Aspirin Delayed Release) 81 Mg Tablet.dr, 81 MG PO DAILY, #30 TAB 2 [facility]ills Prov[facility]. 02/24/19 Atorvastatin* (Atorvastatin*) 40 Mg Tablet, 40 MG PO QHS, #30 TAB [facility] 02/24/19 Isosorbide Dinitrate* (Isordil*) 10 Mg Tablet, 10 MG PO TID, #90 TAB 2 Refills Prov:BER[facility]BEDELISA [facility]. 02/24/19 Reported Medications Linagliptin/Metformin HCl (Jentadueto Xr 2.5 mg-1,000 mg) 1 Each Tab.bp.24h, 1 EACH PO QAM, TAB 02/23/19 Lisinopril* (Lisinopril*) 10 Mg Tablet, 10 MG PO DAILY, #30 TAB 02/23/19 Allergies Allergies: Coded Allergies: No Known Allergy (Unverified , 03/15/19) PMhx/Soc History of Surgery: Yes (Left eye SX w/ prosthetic (1985)) Anesthesia Reaction: No Hx Neurological Disorder: No Hx Respiratory Disorders: No Hx Cardiac Disorders: Yes (HTN, high cholesterol) Hx Psychiatric Problems: No Hx Miscellaneous Medical Probl: No Hx Alcohol Use: Yes (Social drinker ) Hx Substance Use: No Hx Tobacco Use: No Physical Exam Vitals Vital Signs Date Temp Pulse Resp B/P (MAP) Pulse Ox O2 O2 Flow FiO2 Time Delivery Rate 03/15/19 75 16 127/86 95 Room Air 22:00 (100) 03/15/19 71 22 113/77 95 Room Air 20:30 (89) 03/15/19 97.5 80 19 132/76 98 18:59 (94) Physical Exam Const: No acute distress. Head: Atraumatic. Eyes: Normal Conjunctiva. ENT: Normal External Ears, Nose and Mouth. Neck: Full range of motion. No meningismus. Resp: Clear to auscultation bilaterally. Cardio: Regular rate and rhythm. Abd: Soft, non distended, normal bowel sounds, non tender. Skin: No petechiae or rashes. Back: No midline or flank tenderness. Ext: No cyanosis, or edema. Neur: Awake and alert. No focal deficit Psych: Normal Mood and Affect. Result Diagram: 03/15/19200803/15/192008 Results 24 hrs Laboratory Tests Test 03/15/19 20:09 White Blood Count 7.2 10^3/ul Red Blood Count 3.95 10^6/ul Hemoglobin 11.6 g/dl Hematocrit 34.5 % Mean Corpuscular Volume 87.3 fl Mean Corpuscular Hemoglobin 29.4 pg Mean Corpuscular Hemoglobin Concent 33.6 g/dl Red Cell Distribution Width 11.9 % Platelet Count 203 10^3/UL Mean Platelet Volume 9.1 fl Immature Granulocytes % 0.300 % Neutrophils % 64.2 % Lymphocytes % 23.5 % Monocytes % 9.9 % Eosinophils % 1.8 % Basophils % 0.3 % Nucleated Red Blood Cells % 0.0 /100WBC Immature Granulocytes # 0.020 10^3/ul Neutrophils # 4.6 10^3/ul Lymphocytes # 1.7 10^3/ul Monocytes # 0.7 10^3/ul Eosinophils # 0.1 10^3/ul Basophils # 0.0 10^3/ul Nucleated Red Blood Cells # 0.0 10^3/ul Sodium Level 141 mmol/L Potassium Level 3.9 mmol/L Chloride Level 107 mmol/L Carbon Dioxide Level 25 mmol/L Anion Gap 9 Blood Urea Nitrogen 11 mg/dl Creatinine 0.87 mg/dl Est Glomerular Filtrat Rate mL/min > 60 mL/min Glucose Level 143 mg/dl Calcium Level 9.0 mg/dl Troponin I 1.010 ng/ml Current Medications Medications Dose Sig/Aide Start Time Status Last (Trade) Ordered Route PRN Stop Time Admin Dose Reason Admin 1 inch ONCE STAT 03/15/19 DC 03/15/19 Nitroglycerin TD 20:58 21:15 03/15/19 21:00 (Nitroglyceri n 2% Oint) Aspirin 324 mg ONCE ONCE 03/15/19 DC 03/15/19 (Aspirin) PO 21:00 21:14 03/15/19 21:01 Enoxaparin 90 mg ONCE STAT 03/15/19 DC 03/15/19 Sodium SC 21:07 21:14 (Lovenox) 03/15/19 21:08 Procedures/[place] [address] Radiology Main Line: [phone] DIAGNOSTIC IMAGING REPORT Patient: PASHA MENJIVAR : 1970 Age: 48 Sex: M MR #: [id number] DOS: 03/15/192002 Ordering MD: ERIC GONZALES MD Location: E/R Room/Bed: PROCEDURE: Chest. CLINICAL INDICATION: Chest pain. TECHNIQUE: Single frontal view of the chest was obtained. COMPARISON: 02/23/2019. FINDINGS: The cardiac silhouette is magnified. The aortic arch is unremarkable. There is no focal consolidation, vascular congestion or pleural effusion. There is no pneumothorax. IMPRESSION: No evidence for active cardiopulmonary disease. .Sharif Corona MD, Date Time Electronically viewed and signed by .Sharif Corona MD, on 03/15/2019 21:39 .T/ CC: ERIC GONZALES MD [id number] EK:09 hr Read by emergency physician Rate/Rhythm: Normal Sinus Rhythm 73 beats/min QRS, ST, T-waves: No ST elevation, nonspecific ST and T abnormality, no PVC Impression: Abnormal EKG EK:09 hr Read by emergency physician Rate/Rhythm: Normal Sinus Rhythm 76 beats/min QRS, ST, T-waves: No ST elevation, nonspecific ST and T abnormality, no PVC Impression: Abnormal EKG EK:16 hr Read by emergency physician Rate/Rhythm: Normal Sinus Rhythm 76 beats/min QRS, ST, T-waves: No ST elevation, nonspecific ST and T abnormality, no PVC, IRBBB Impression: Abnormal EKG MEDICAL MAKING DECISION: The patient is a 48-year-old male, presenting with acute non-STEMI. He was treated with aspirin 324 mg p.o., 1 inch of nitroglycer in ointment to the chest wall, Lovenox 1 mg/kg for acute non-STEMI with good response. The differential diagnoses considered include but are not limited to acute coronary syndrome, acute myocardial infarction, pericarditis, pulmonary embolism, aortic dissection, pneumonia, pleural effusion, pneumothorax, GERD, chest wall pain. Critical Care: Time: 35 minutes excluding all billable procedures. Treatments/Evaluations: Close monitoring and treatment of unstable vital signs, cardiorespiratory, and neurologic status, while maintaining tight balance of fluid, respiratory, and cardiac interventions. Departure Diagnosis: Primary Impression: NSTEMI (non-ST elevated myocardial infarction) Condition: Stable Comments I discussed the findings with the patient. I discussed the patient with Dr Grimes at 10:10 p , who was made aware of the lab, the treatment, the patient condition. The patient is admitted to Tel Disclaimer: Inadvertent spelling and grammatical errors are likely due to EHR/dictation software use and do not reflect on the overall quality of patient care. Also, please note that the electronic time recorded on this note does not necessarily reflect the actual time of the patient encounter. ERIC GONZALES MD March 15, 2019 20:00
[2019-03-15] MEDS ORDERED: NITROGLYCERIN 2% 1 GM OINT PKT TD STA (20:58)
[2019-03-15] MEDS ORDERED: ASPIRIN 81 MG TAB PO ONE (21:00)
[2019-03-15] MEDS ORDERED: ENOXAPARIN 100 MG/ML SYG SC STA (21:07)
[2019-03-16] VITALS (9 sets, daily range): BP systolic 107–125; BP diastolic 59–84; PULSE 70–91; RESP 16–18; Ht 160 cm; Wt 89.1 kg
[2019-03-16] MEDS ORDERED: RANO500T2 PO (00:11)
[2019-03-16] MEDS ORDERED: ACETAMINOPHEN 325 MG TAB PO PRN (00:30)
[2019-03-16] MEDS ORDERED: NITROGLYCERIN (SL) 0.4 MG TAB SL PRN (00:30)
[2019-03-16] MEDS ORDERED: ONDANSETRON 4 MG INJ IV PRN (00:30)
[2019-03-16] MEDS ORDERED: NACL 0.9% 3 ML SYG IV SCH (00:30)
[2019-03-16] MEDS ORDERED: ALBUTEROL/IPRATROPIUM (NEB) 3 ML AMP HHN PRN (00:30)
--- NOTE | 2019-03-16 06:13 | HP ---
Date/Time of Note Date/Time of Note DATE: 03/16/19 TIME: 06:09 Assessment/Plan VTE Prophylaxis Pharmacological prophylaxis: other Lines/Catheters IV Catheter Type (from Nrs): Saline Lock Assessment/Plan Assessment/Plan 1. NSTEMI -Status post treatment dose Lovenox in the ER -Trend troponin -Patient had a negative nuclear stress test 3 weeks ago. 2D echo at that time was preserved EF -Supplemental oxygen, aspirin, statin, beta-griselda. As needed nitro -will anticoagulate -Cardiology consult 2. Type 2 diabetes: Insulin while in-house 3. Hypertension: Continue meds. Adjust as needed 4. Dyslipidemia: Continue statin. Result Diagram: 03/15/19200803/15/192008 Results 24hrs Laboratory Tests Test 03/15/19 20:09 03/16/19 01:43 03/16/19 05:15 White Blood Count 7.2 # Pending Red Blood Count 3.95 L Pending Hemoglobin 11.6 L Pending Hematocrit 34.5 L Pending Mean Corpuscular Volume 87.3 Pending Mean Corpuscular Hemoglobin 29.4 Pending Mean Corpuscular Hemoglobin Concent 33.6 Pending Red Cell Distribution Width 11.9 Pending Platelet Count 203 Pending Mean Platelet Volume 9.1 Pending Immature Granulocytes % 0.300 Neutrophils % 64.2 Lymphocytes % 23.5 Monocytes % 9.9 Eosinophils % 1.8 Basophils % 0.3 Nucleated Red Blood Cells % 0.0 Immature Granulocytes # 0.020 Neutrophils # 4.6 Lymphocytes # 1.7 Monocytes # 0.7 Eosinophils # 0.1 Basophils # 0.0 Nucleated Red Blood Cells # 0.0 Sodium Level 141 Potassium Level 3.9 Chloride Level 107 Carbon Dioxide Level 25 Anion Gap 9 Blood Urea Nitrogen 11 Creatinine 0.87 Est Glomerular Filtrat Rate mL/min > 60 Glucose Level 143 Calcium Level 9.0 Troponin I 1.010 *H 2.310 *H Creatine Kinase 407 H Creatine Kinase Index 5.5 Creatinine Kinase MB (Mass) 22.30 H HPI/ROS Admit Date/Time Admit Date/Time March 15, 2019 at 22:11 Hx of Present Illness This is a 48-year-old male with a history of hypertension, type 2 diabetes, dyslipidemia who presents the ER complaining of chest pain. Patient was admitted here 3 weeks ago for chest pain. At that time troponin was negative. 2D echo with preserved EF. Nuclear stress test was negative. He was having chest pain intermittently for the past 2 weeks or so. When he presented to the ER, his initial troponin was 1. Patient was given treatment dose of Lovenox. EKG nonspecific ST-T wave abnormalities, no ST elevation. PMH/Family/Social Past Medical History Past Medical History Medical History: other (See HPI) Past Surgical History Past Surgical Hx: other (See HPI) Family History Significant Family History: no pertinent family hx Social History Alcohol Use: none Smoking Status: Never smoker Drug Use: none Exam Constitutional: alert, oriented, well developed Head: normocephalic, atraumatic Eyes: EOMI, PERRL Respiratory: clear to auscultation, normal air movement Cardiovascular: regular rate and rhythm, nl pulses Gastrointestinal: soft, non-tender Extremities: normal pulses Medications Current Medications IV Flush (NS 3 ml) 3 ml PER PROTOCOL IV ; Start 03/16/19 at 00:30 Ondansetron HCl (Zofran Inj) 4 mg Q6H PRN IV NAUSEA/VOMITING; Start 03/16/19 at 00:30 Nitroglycerin (Nitroglycerin (Sl Tab) 0.4 Mg) 1 tab Q5M PRN SL .CHEST PAIN; Start 03/16/19 at 00:30 Acetaminophen (Tylenol Tab) 650 mg Q6H PRN PO .PAIN 1-3 OR TEMP; Start 03/16/19 at 00:30 Albuterol/ Ipratropium (Duoneb) 3 ml Q2H RESP THERAPY PRN HHN SHORTNESS OF BREATH; Start 03/16/19 at 00:30 Aspirin (Halfprin) 81 mg DAILY PO ; Start 03/16/19 at 09:00 Atorvastatin Calcium (Lipitor) 40 mg QHS PO ; Start 03/16/19 at 21:00 Isosorbide Dinitrate (Isordil) 10 mg TID PO ; Start 03/16/19 at 09:00 Lisinopril (Zestril) 10 mg DAILY PO ; Start 03/16/19 at 09:00 Ranolazine (Ranexa) 500 mg BID PO ; Start 03/16/19 at 09:00 Enoxaparin Sodium (Lovenox) 90 mg DAILY SC ; Start 03/16/19 at 09:00 Coded Allergies: No Known Allergy (Unverified , 03/15/19) Social History Smoking Status: Never smoker Exam/Review of Systems Vital Signs Vitals Vital Signs Date Temp Pulse Resp B/P (MAP) Pulse Ox O2 O2 Flow FiO2 Time Delivery Rate 03/16/19 74 04:00 03/16/19 14 129/97 97 Room Air 00:19 (108) 03/15/19 97.5 18:59 Intake and Output 03/15/19 03/15/19 03/16/19 1515:00 23:00 07:00 IntakeIntake Total 400 ml BalanceBalance 400 ml BREA SINGH MD March 16, 2019 06:13
[2019-03-16] MEDS ORDERED: DEXTROSE 50% 50 ML SYRINGE IV PRN ×2 (06:30)
[2019-03-16] MEDS ORDERED: GLUCOSE GEL 15 GRAM TUBE BUCCAL PRN (06:30)
[2019-03-16] MEDS ORDERED: GLUCOSE GEL 15 GRAM TUBE PO PRN ×2 (06:30)
[2019-03-16] MEDS ORDERED: GLUCAGON 1 MG INJ IM PRN (06:30)
[2019-03-16] MEDS: INSULIN ASPART [NOVOLOG] 3 ML PEN SC SCH ×5 (07:44→20:12)
[2019-03-16] MEDS: ASPIRIN (EC) 81 MG TAB PO SCH (08:15)
[2019-03-16] MEDS: ISOSORBIDE DINITRATE 10 MG TAB PO SCH ×3 (08:15→20:15)
[2019-03-16] MEDS: RANOLAZINE (SR) 500 MG TAB PO SCH ×2 (08:15→20:14)
[2019-03-16] MEDS ORDERED: LISINOPRIL 10 MG TAB PO SCH (09:00)
[2019-03-16] MEDS ORDERED: ENOXAPARIN 100 MG/ML SYG SC SCH ×2 (09:00→21:00)
[2019-03-16] MEDS ORDERED: ENOXAPARIN 40 MG/0.4 ML SYG SC SCH (09:00)
--- NOTE | 2019-03-16 11:19 | PN ---
Date/Time of Note Date/Time of Note DATE: 03/16/19 TIME: 11:10 Assessment/Plan VTE Prophylaxis Risk score (from [facility])>0 risk: 4 SCD applied (from [facility]): No SCD contraindicated: other Pharmacological prophylaxis: LMWH Lines/Catheters IV [facility]ter Type (from [facility]): Saline Lock Assessment/Plan Hospital Course S: Patient had some occasional chest pain symptoms. Waiting to be seen by cardiology team. Received Lovenox earlier this morning. O: VS - see below PE: Gen: No acute distress. Head: Atraumatic. Eyes: Normal Conjunctiva. ENT: Normal External Ears, Nose and Mouth. Neck: Full range of motion. No meningismus. Resp: Clear to auscultation bilaterally. Cardio: Regular rate and rhythm. Abd: Soft, non distended, normal bowel sounds, non tender. Ext: No cyanosis, or edema. Neuro: Awake and alert. No focal deficit Psych: Normal Mood and Affect. Assessment/Plan: 48-year-old male who presents with: 1. NSTEMI-Status post treatment dose Lovenox in the ER. Apparently patient had a negative nuclear stress test 3 weeks ago. 2D echo at that time was preserved EF -Continue to trend troponin, continue Lovenox 1 mg/kg subcu twice daily until further cardiology recommendations -Supplemental oxygen, aspirin, statin, beta-griselda. As needed nitro -Follow-up further recommendations from cardiology consult 2. Type 2 diabetes: Follow-up A1c, continue insulin while in-house 3. Hypertension: Presently stable - continue meds. Adjust as needed 4. Dyslipidemia: Continue statin. Result Diagram: 03/16/19 0515 03/16/19 0515 Results 24hrs Laboratory Tests Test 03/15/19 20:09 03/16/19 01:43 03/16/19 05:15 03/16/19 07:43 White Blood Count 7.2 # 7.3 Red Blood Count 3.95 L 4.12 L Hemoglobin 11.6 L 12.1 L Hematocrit 34.5 L 36.1 L Mean Corpuscular 87.3 87.6 Volume Mean Corpuscular 29.4 29.4 Hemoglobin Mean Corpuscular 33.6 33.5 Hemoglobin Concent Red Cell 11.9 11.9 Distribution Width Platelet Count 203 192 Mean Platelet Volume 9.1 9.7 Immature 0.300 0.400 Granulocytes % Neutrophils % 64.2 68.4 Lymphocytes % 23.5 20.6 Monocytes % 9.9 8.4 Eosinophils % 1.8 1.9 Basophils % 0.3 0.3 Nucleated Red Blood 0.0 0.0 Cells % Immature 0.020 0.030 Granulocytes # Neutrophils # 4.6 5.0 Lymphocytes # 1.7 1.5 Monocytes # 0.7 0.6 Eosinophils # 0.1 0.1 Basophils # 0.0 0.0 Nucleated Red Blood 0.0 0.0 Cells # Sodium Level 141 140 Potassium Level 3.9 3.9 Chloride Level 107 107 Carbon Dioxide Level 25 23 Anion Gap 9 10 Blood Urea Nitrogen 11 10 Creatinine 0.87 0.78 Est Glomerular > 60 > 60 Filtrat Rate mL/min Glucose Level 143 125 Calcium Level 9.0 9.1 Troponin I 1.010 *H 2.310 *H Creatine Kinase 407 H Creatine Kinase 5.5 Index Creatinine Kinase MB 22.30 H (Mass) Hemoglobin A1c 6.4 H Magnesium Level 1.8 Total Bilirubin 0.7 Direct Bilirubin 0.00 Indirect Bilirubin 0.7 Aspartate Amino 54 H Transf (AST/SGOT) Alanine 39 Aminotransferase (AL T/SGPT) Alkaline Phosphatase 45 Total Protein 7.1 Albumin 4.1 Globulin 3.00 Albumin/Globulin 1.36 Ratio Triglycerides Level 300 H Cholesterol Level 143 LDL Cholesterol, 52 Calculated HDL Cholesterol 31 Cholesterol/HDL 4.6 Ratio Thyroid Stimulating 1.830 Hormone (TSH) Bedside Glucose 127 Test 03/16/19 08:55 Creatine Kinase 463 H Creatine Kinase 6.5 Index Creatinine Kinase MB 29.90 H (Mass) Troponin I 3.530 *H Exam/Review of Systems Exam Vitals Vital Signs Date Temp Pulse Resp B/P (MAP) Pulse Ox O2 O2 Flow FiO2 Time Delivery Rate 03/16/19 91 09:10 03/16/19 97.7 16 109/59 98 Room Air 07:10 (76) Intake and Output 03/15/19 03/15/19 03/16/19 1414:59 22:59 06:59 IntakeIntake Total 400 ml BalanceBalance 400 ml Results Results 24hrs Laboratory Tests Test 03/15/19 20:09 03/16/19 01:43 03/16/19 05:15 03/16/19 07:43 White Blood Count 7.2 # 7.3 Red Blood Count 3.95 L 4.12 L Hemoglobin 11.6 L 12.1 L Hematocrit 34.5 L 36.1 L Mean Corpuscular 87.3 87.6 Volume Mean Corpuscular 29.4 29.4 Hemoglobin Mean Corpuscular 33.6 33.5 Hemoglobin Concent Red Cell 11.9 11.9 Distribution Width Platelet Count 203 192 Mean Platelet Volume 9.1 9.7 Immature 0.300 0.400 Granulocytes % Neutrophils % 64.2 68.4 Lymphocytes % 23.5 20.6 Monocytes % 9.9 8.4 Eosinophils % 1.8 1.9 Basophils % 0.3 0.3 Nucleated Red Blood 0.0 0.0 Cells % Immature 0.020 0.030 Granulocytes # Neutrophils # 4.6 5.0 Lymphocytes # 1.7 1.5 Monocytes # 0.7 0.6 Eosinophils # 0.1 0.1 Basophils # 0.0 0.0 Nucleated Red Blood 0.0 0.0 Cells # Sodium Level 141 140 Potassium Level 3.9 3.9 Chloride Level 107 107 Carbon Dioxide Level 25 23 Anion Gap 9 10 Blood Urea Nitrogen 11 10 Creatinine 0.87 0.78 Est Glomerular > 60 > 60 Filtrat Rate mL/min Glucose Level 143 125 Calcium Level 9.0 9.1 Troponin I 1.010 *H 2.310 *H Creatine Kinase 407 H Creatine Kinase 5.5 Index Creatinine Kinase MB 22.30 H (Mass) Hemoglobin A1c 6.4 H Magnesium Level 1.8 Total Bilirubin 0.7 Direct Bilirubin 0.00 Indirect Bilirubin 0.7 Aspartate Amino 54 H Transf (AST/SGOT) Alanine 39 Aminotransferase (AL T/SGPT) Alkaline Phosphatase 45 Total Protein 7.1 Albumin 4.1 Globulin 3.00 Albumin/Globulin 1.36 Ratio Triglycerides Level 300 H Cholesterol Level 143 LDL Cholesterol, 52 Calculated HDL Cholesterol 31 Cholesterol/HDL 4.6 Ratio Thyroid Stimulating 1.830 Hormone (TSH) Bedside Glucose 127 Test 03/16/19 08:55 Creatine Kinase 463 H Creatine Kinase 6.5 Index Creatinine Kinase MB 29.90 H (Mass) Troponin I 3.530 *H Medications Medication Current Medications IV Flush (NS 3 ml) 3 ml PER PROTOCOL IV ; Start 03/16/19 at 00:30 Ondansetron HCl (Zofran Inj) 4 mg Q6H PRN IV NAUSEA/VOMITING; Start 03/16/19 at 00:30 Nitroglycerin (Nitroglycerin (Sl Tab) 0.4 Mg) 1 tab Q5M PRN SL .CHEST PAIN; Start 03/16/19 at 00:30 Acetaminophen (Tylenol Tab) 650 mg Q6H PRN PO .PAIN 1-3 OR TEMP; Start 03/16/19 at 00:30 Albuterol/ Ipratropium (Duoneb) 3 ml Q2H RESP THERAPY PRN HHN SHORTNESS OF BREATH; Start 03/16/19 at 00:30 Aspirin (Halfprin) 81 mg DAILY PO Last administered on 03/16/19at 08:15; Admin Dose 81 MG; Start 03/16/19 at 09:00 Atorvastatin Calcium (Lipitor) 40 mg QHS PO ; Start 03/16/19 at 21:00 Isosorbide Dinitrate (Isordil) 10 mg TID PO Last administered on 03/16/19at 08:15; Admin Dose 10 MG; Start 03/16/19 at 09:00 Lisinopril (Zestril) 10 mg DAILY PO Last administered on 03/16/19at 08:15; Admin Dose 10 MG; Start 03/16/19 at 09:00 Ranolazine (Ranexa) 500 mg BID PO Last administered on 03/16/19at 08:15; Admin Dose 500 MG; Start 03/16/19 at 09:00 Enoxaparin Sodium (Lovenox) 90 mg DAILY SC Last administered on 03/16/19at 08:37; Admin Dose 90 MG; Start 03/16/19 at 09:00 Diagnostic Test (Pha) (Accu-Chek) 1 ea 02 XX ; Start 03/17/19 at 02:00 Insulin Aspart (Novolog Insulin Pen) NOVOLOG *MILD* ALGORITHM WITH MEALS BEDTIME SC ; Start 03/16/19 at 07:55 Miscellaneous Information 1 ea NOTE XX ; Start 03/16/19 at 06:30 Glucose (Glutose) 15 gm Q15M PRN PO DECREASED GLUCOSE; Start 03/16/19 at 06:30 Glucose (Glutose) 22.5 gm Q15M PRN PO DECREASED GLUCOSE; Start 03/16/19 at 06:30 Dextrose (D50w Syringe) 25 ml Q15M PRN IV DECREASED GLUCOSE; Start 03/16/19 at 06:30 Dextrose (D50w Syringe) 50 ml Q15M PRN IV DECREASED GLUCOSE; Start 03/16/19 at 06:30 Glucagon (Glucagen) 1 mg Q15M PRN IM DECREASED GLUCOSE; Start 03/16/19 at 06:30 Glucose (Glutose) 15 gm Q15M PRN BUCCAL DECREASED GLUCOSE; Start 03/16/19 at 06:30 JUS ALMAZAN March 16, 2019 11:19
[2019-03-16] MEDS ORDERED: hydrALAzine 20 MG INJ IV PRN (17:30)
--- NOTE | 2019-03-16 18:31 | CONS ---
DATE OF ADMISSION: 03/15/2019 DATE OF CONSULTATION: 03/16/2019 TYPE OF CONSULTATION: Cardiology. REASON FOR CONSULTATION: Non-ST elevation myocardial infarction. REQUESTING PHYSICIAN: Jus Almazan MD, from the hospitalist service. HISTORY OF PRESENT ILLNESS: Mr. Mcconnell is a 48-year-old male with history of diabetes mellitus, hy pertension, dyslipidemia, who presented with complaints of substernal chest pain. The patient descri bes chest pain as a pressure-like sensation across his chest. The patient had been admitted on 02/24 with chest pain and at that time underwent cardiac stress test which revealed no perfusion defe cts and EF of 62%. Upon arrival in the emergency department, temperature of 97.7, blood pressure 148 /91, pulse 88, respiratory rate 18, satting 97%. The patient's labs were initially notable for a whi te count of 7.2, hemoglobin 11.6, platelet count of 203, a sodium of 141, potassium 3.9, creatinine 0 .8, BUN 11, troponin of 1.01 and increased to peak of 3.64 this morning. The patient's electrocardio gram revealed normal sinus rhythm, rate of 73, normal axis with diffuse nonspecific ST and T-wave abn ormalities. The patient had serial EKGs done revealing anterior T-wave inversion in V2, V3. The pat lg has been treated with Lovenox at this time and is receiving aspirin. PAST MEDICAL HISTORY: As above in HPI. MEDICATIONS CURRENTLY IN HOSPITAL: 1. Lipitor 40 mg at bedtime. 2. Lovenox 90 mg subq b.i.d. 3. Aspirin 81 mg daily. 4. Isordil 10 mg 3 times daily. 5. Zestril 10 mg. 6. Ranexa 500 mg b.i.d. 7. Sublingual nitroglycerin. 8. Tylenol. 9. DuoNeb. ALLERGIES: NO KNOWN DRUG ALLERGIES. SOCIAL HISTORY: No current tobacco, EtOH or illicit drug use. FAMILY HISTORY: No history of sudden cardiac or early CAD. REVIEW OF SYSTEMS: As above in HPI. CONSTITUTIONAL: No fevers, chills. PULMONARY: No current shortness of breath. CARDIOVASCULAR: Current chest pain with non-ST myocardial infarction. GASTROINTESTINAL: No vomiting. GENITOURINARY: No hematuria. MUSCULOSKELETAL: Degenerative joint disease. PSYCHIATRIC: The patient denies depression. NEUROLOGIC: No documented history of CVA. ENDOCRINE: No documented history of diabetes mellitus. PHYSICAL EXAMINATION: VITAL SIGNS: Temperature of 98, blood pressure 124/84, pulse 82, respiratory rate 18, satting 97%. GENERAL: The patient is alert, awake, in no acute distress. NECK: JVP approximately is 8 to 9 cm of water. CHEST: Fair air movement throughout. HEART: Regular rate and rhythm. Normal S1, S2, I/ systolic murmur, nondisplaced PMI. ABDOMEN: Positive bowel sounds, soft. EXTREMITIES: No significant pitting edema, 1+ pulses bilaterally posterior tibial. LABORATORIES: As above in HPI with most recently from today, troponin at 3.64. CK-MB of 29.9. Whit e blood cell count of 7.3, hemoglobin 12.1, platelet count of 192. Sodium 140, potassium 3.9, creati nine 0.78. LDL 52, HDL 31. IMAGING STUDIES: Chest x-ray from 03/15/2019 revealing no acute cardiopulmonary abnormalities. ELECTROCARDIOGRAM: As above in HPI. No further electrocardiograms for my review at this time. IMPRESSION: 1. Non-ST elevation myocardial infarction with up trending cardiac enzymes. 2. Chest pain on admit, currently improved. 3. Abnormal electrocardiogram with anterior T-wave inversions. 4. Hypertension. 5. Dyslipidemia. RECOMMENDATIONS: 1. At this time, we would maintain the patient on telemetry monitoring to follow rhythm and rate con trol closely. 2. We would continue the patient's current aspirin for prophylaxis against cardiovascular events and patient's Lovenox at this time as patient has already started on it. 3. We would place the patient on a beta griselda in the setting of positive troponins. 4. We would increase the patient's statin dose for high dose statin probably pravastatin in the sett ing of a non-ST elevation myocardial infarction and we will continue the patient's additionally antia nginal medication with Isordil and Ranexa and we will discontinue the patient's Zestril for blood pre ssure control. 5. Follow the patient's blood sugars closely. 6. Given the patient's non-ST elevation myocardial infarction, we will place the patient in for card iac catheterization to take place tomorrow. Thank you for allowing me to take part in the care of this patient. I will continue to follow him ve ry closely with you with further recommendations to be made as the patient progresses [facility]. Dictated By: RONNA WOMACK/MAGO Conf#: [id number] DID#: [id number] CC: JUS ALMAZAN; BREA SINGH MD;*EndCC*
[2019-03-16] MEDS: ATORVASTATIN 80 MG TAB PO SCH (20:15)
[2019-03-16] MEDS ORDERED: ATORVASTATIN 40 MG TAB PO SCH (21:00)
[2019-03-17] VITALS (11 sets, daily range): BP systolic 93–122; BP diastolic 55–82; PULSE 74–88; RESP 16–18
[2019-03-17] MEDS: ACCU-CHEK XX SCH (01:56)
[2019-03-17] MEDS ORDERED: DIPHENHYDRAMINE 50 MG CAP PO ONE (07:00)
[2019-03-17] MEDS ORDERED: DIAZEPAM 5 MG TAB PO ONE (07:00)
[2019-03-17] MEDS: INSULIN ASPART [NOVOLOG] 3 ML PEN SC SCH ×4 (07:55→20:29)
[2019-03-17] MEDS: ASPIRIN (EC) 81 MG TAB PO SCH (08:19)
[2019-03-17] MEDS: ISOSORBIDE DINITRATE 10 MG TAB PO SCH ×3 (08:19→20:29)
[2019-03-17] MEDS: RANOLAZINE (SR) 500 MG TAB PO SCH ×2 (08:19→20:28)
--- NOTE | 2019-03-17 11:14 | PN ---
Date/Time of Note Date/Time of Note DATE: 03/17/19 TIME: 11:11 Assessment/Plan VTE Prophylaxis Risk score (from [facility])>0 risk: 2 SCD applied (from [facility]): No SCD contraindicated: other Pharmacological prophylaxis: LMWH Lines/Catheters IV Catheter Type (from [facility]): Saline Lock Assessment/Plan Hospital Course S: Patient seen by cardiology team and awaiting left heart cath for later this morning. No acute events overnight, received last dose of Lovenox last night. O: VS - see below PE: Gen: No acute distress. Head: Atraumatic. Eyes: Normal Conjunctiva. ENT: Normal External Ears, Nose and Mouth. Neck: Full range of motion. No meningismus. Resp: Clear to auscultation bilaterally. Cardio: Regular rate and rhythm. Abd: Soft, non distended, normal bowel sounds, non tender. Ext: No cyanosis, or edema. Neuro: Awake and alert. No focal deficit Psych: Normal Mood and Affect. Assessment/Plan: 48-year-old male who presents with: 1. NSTEMI-Status post Lovenox treatment x2 thus far, evaluated by cardiology team and awaiting left heart catheter later today (Apparently patient had a negative nuclear stress test 3 weeks ago. 2D echo at that time was preserved EF) -For left heart cath later today, follow-up post procedure recommendations and further cardiology recommendations -Supplemental oxygen, aspirin, statin, beta-griselda. As needed nitro 2. Type 2 diabetes: Sugars stable, A1c was 6.8 - continue insulin while in-house 3. Hypertension: Presently stable - continue meds. Adjust as needed 4. Dyslipidemia: Continue statin. Result Diagram: 03/17/1971103/17/1912 Results 24hrs Laboratory Tests Test 03/16/19 11:42 03/16/19 11:50 03/16/19 14:50 03/16/19 16:44 Troponin I 3.640 *H 4.620 *H Bedside Glucose 139 173 Creatine Kinase 463 H Creatine Kinase 5.2 Index Creatinine Kinase MB 24.20 H (Mass) Test 03/16/19 20:11 03/17/19 07:12 03/17/19 07:49 Bedside Glucose 155 131 White Blood Count 6.3 Red Blood Count 4.44 L Hemoglobin 13.0 L Hematocrit 38.6 L Mean Corpuscular 86.9 Volume Mean Corpuscular 29.3 Hemoglobin Mean Corpuscular 33.7 Hemoglobin Concent Red Cell 12.1 Distribution Width Platelet Count 214 Mean Platelet Volume 10.0 Immature 0.500 H Granulocytes % Neutrophils % 62.5 Lymphocytes % 23.7 Monocytes % 11.1 H Eosinophils % 1.9 Basophils % 0.3 Nucleated Red Blood 0.0 Cells % Immature 0.030 Granulocytes # Neutrophils # 4.0 Lymphocytes # 1.5 Monocytes # 0.7 Eosinophils # 0.1 Basophils # 0.0 Nucleated Red Blood 0.0 Cells # Prothrombin Time 13.3 Prothrombin Time 1.0 Ratio INR International 1.00 Normalized Ratio Activated 35.3 H Partial Thromboplast Time Sodium Level 140 Potassium Level 4.5 Chloride Level 106 Carbon Dioxide Level 24 Anion Gap 10 Blood Urea Nitrogen 11 Creatinine 0.81 Est Glomerular > 60 Filtrat Rate mL/min Glucose Level 131 Calcium Level 9.1 Phosphorus Level 3.9 Magnesium Level 1.9 Creatine Kinase 270 #H Creatine Kinase 3.4 Index Creatinine Kinase MB 9.05 H (Mass) Troponin I 4.160 *H Exam/Review of Systems Exam Vitals Vital Signs Date Temp Pulse Resp B/P (MAP) Pulse Ox O2 O2 Flow FiO2 Time Delivery Rate 03/17/19 77 08:19 03/17/19 98.7 16 116/76 98 Room Air 07:17 (89) Intake and Output 03/16/19 03/16/19 03/17/19 1515:00 23:00 07:00 IntakeIntake Total 980 ml 750 ml BalanceBalance 980 ml 750 ml Results Results 24hrs Laboratory Tests Test 03/16/19 11:42 03/16/19 11:50 03/16/19 14:50 03/16/19 16:44 Troponin I 3.640 *H 4.620 *H Bedside Glucose 139 173 Creatine Kinase 463 H Creatine Kinase 5.2 Index Creatinine Kinase MB 24.20 H (Mass) Test 03/16/19 20:11 03/17/19 07:12 03/17/19 07:49 Bedside Glucose 155 131 White Blood Count 6.3 Red Blood Count 4.44 L Hemoglobin 13.0 L Hematocrit 38.6 L Mean Corpuscular 86.9 Volume Mean Corpuscular 29.3 Hemoglobin Mean Corpuscular 33.7 Hemoglobin Concent Red Cell 12.1 Distribution Width Platelet Count 214 Mean Platelet Volume 10.0 Immature 0.500 H Granulocytes % Neutrophils % 62.5 Lymphocytes % 23.7 Monocytes % 11.1 H Eosinophils % 1.9 Basophils % 0.3 Nucleated Red Blood 0.0 Cells % Immature 0.030 Granulocytes # Neutrophils # 4.0 Lymphocytes # 1.5 Monocytes # 0.7 Eosinophils # 0.1 Basophils # 0.0 Nucleated Red Blood 0.0 Cells # Prothrombin Time 13.3 Prothrombin Time 1.0 Ratio INR International 1.00 Normalized Ratio Activated 35.3 H Partial Thromboplast Time Sodium Level 140 Potassium Level 4.5 Chloride Level 106 Carbon Dioxide Level 24 Anion Gap 10 Blood Urea Nitrogen 11 Creatinine 0.81 Est Glomerular > 60 Filtrat Rate mL/min Glucose Level 131 Calcium Level 9.1 Phosphorus Level 3.9 Magnesium Level 1.9 Creatine Kinase 270 #H Creatine Kinase 3.4 Index Creatinine Kinase MB 9.05 H (Mass) Troponin I 4.160 *H Medications Medication Current Medications IV Flush (NS 3 ml) 3 ml PER PROTOCOL IV ; Start 03/16/19 at 00:30 Ondansetron HCl (Zofran Inj) 4 mg Q6H PRN IV NAUSEA/VOMITING; Start 03/16/19 at 00:30 Nitroglycerin (Nitroglycerin (Sl Tab) 0.4 Mg) 1 tab Q5M PRN SL .CHEST PAIN; Start 03/16/19 at 00:30 Acetaminophen (Tylenol Tab) 650 mg Q6H PRN PO .PAIN 1-3 OR TEMP Last administered on 03/16/19at 13:25; Admin Dose 650 MG; Start 03/16/19 at 00:30 Albuterol/ Ipratropium (Duoneb) 3 ml Q2H RESP THERAPY PRN HHN SHORTNESS OF BREATH; Start 03/16/19 at 00:30 Aspirin (Halfprin) 81 mg DAILY PO Last administered on 03/17/19at 08:19; Admin Dose 81 MG; Start 03/16/19 at 09:00 Isosorbide Dinitrate (Isordil) 10 mg TID PO Last administered on 03/17/19 08:19; Admin Dose 10 MG; Start 03/16/19 at 09:00 Ranolazine (Ranexa) 500 mg BID PO Last administered on 03/17/19at 08:19; Admin Dose 500 MG; Start 03/16/19 at 09:00 Diagnostic Test (Pha) (Accu-Chek) 1 ea 02 XX ; Start 03/17/19 at 02:00 Insulin Aspart (Novolog Insulin Pen) NOVOLOG *MILD* ALGORITHM WITH MEALS BEDTIME SC Last administered on 03/16/19at 17:29; Admin Dose 1 UNIT; Start 03/16/19 at 07:55 Miscellaneous Information 1 ea NOTE XX ; Start 03/16/19 at 06:30 Glucose (Glutose) 15 gm Q15M PRN PO DECREASED GLUCOSE; Start 03/16/19 at 06:30 Glucose (Glutose) 22.5 gm Q15M PRN PO DECREASED GLUCOSE; Start 03/16/19 at 06:30 Dextrose (D50w Syringe) 25 ml Q15M PRN IV DECREASED GLUCOSE; Start 03/16/19 at 06:30 Dextrose (D50w Syringe) 50 ml Q15M PRN IV DECREASED GLUCOSE; Start 03/16/19 at 06:30 Glucagon (Glucagen) 1 mg Q15M PRN IM DECREASED GLUCOSE; Start 03/16/19 at 06:30 Glucose (Glutose) 15 gm Q15M PRN BUCCAL DECREASED GLUCOSE; Start 03/16/19 at 06:30 Atorvastatin Calcium (Lipitor) 80 mg DAILY@21 PO Last administered on 03/16/19at 20:15; Admin Dose 80 MG; Start 03/16/19 at 21:00 Hydralazine HCl (Apresoline) 10 mg Q6H PRN IV high blood pressure; Start 03/16/19 at 17:30 JUS ALMAZAN March 17, 2019 11:14
--- NOTE | 2019-03-17 19:57 | CONS ---
Assessment/Plan Assessment/Plan Hospital Course (Demo Recall) IMPRESSION: 1. Non-ST elevation myocardial infarction with up trending cardiac enzymes.-downtrending cardiac enzymes 2. Chest pain on admit, currently improved. 3. Abnormal electrocardiogram with anterior T-wave inversions. 4. Hypertension. 5. Dyslipidemia. Recc: -Tele -Continue isordil/ranexa -Contineu statin -start low dose BB as tolerated only -Continue asa -C tomorrow 9am Consultation Date/Type/Reason Admit Date/Time March 15, 2019 at 22:11 Initial Consult Date 03/15/19 Type of Consult Cardiology Reason for Consultation nstemi Requesting Provider: JUS ALMAZAN Date/Time of Note DATE: 03/17/19 TIME: 19:54 Exam/Review of Systems Vital Signs Vitals Vital Signs Date Temp Pulse Resp B/P (MAP) Pulse Ox O2 O2 Flow FiO2 Time Delivery Rate 03/17/19 88 16:13 03/17/19 98.7 18 93/55 (68) 98 Room Air 15:15 Intake and Output 03/16/19 03/16/19 03/17/19 1515:00 23:00 07:00 IntakeIntake Total 980 ml 750 ml BalanceBalance 980 ml 750 ml Exam Exam Review of Systems: CONSTITUTIONAL: No fevers, chills. PULMONARY: No sob CARDIOVASCULAR: intermittent chest pain GASTROINTESTINAL: No nausea/vomiting. GENITOURINARY: No hematuria/dysuria. MUSCULOSKELETAL: No myagias/arthalgias. PSYCHIATRIC: The patient denies depression. NEUROLOGIC: No weakness Constitutional: alert Psych: no complaints Head: normocephalic ENMT: mucosa pink and moist Neck: supple, jvd (9 cm water) Respiratory: clear to auscultation Cardiovascular: regular rate and rhythm Gastrointestinal: soft Musculoskeletal: muscle tone (normal) Extremities: edema (none) Neurological: other (No focal deficits) Labs Result Diagram: 03/17/1912 03/17/1912 Results 24hrs Laboratory Tests Test 03/16/19 20:11 03/17/19 07:12 03/17/19 07:49 03/17/19 12:01 Bedside Glucose 155 131 122 White Blood Count 6.3 Red Blood Count 4.44 L Hemoglobin 13.0 L Hematocrit 38.6 L Mean Corpuscular 86.9 Volume Mean Corpuscular 29.3 Hemoglobin Mean Corpuscular 33.7 Hemoglobin Concent Red Cell 12.1 Distribution Width Platelet Count 214 Mean Platelet Volume 10.0 Immature 0.500 H Granulocytes % Neutrophils % 62.5 Lymphocytes % 23.7 Monocytes % 11.1 H Eosinophils % 1.9 Basophils % 0.3 Nucleated Red Blood 0.0 Cells % Immature 0.030 Granulocytes # Neutrophils # 4.0 Lymphocytes # 1.5 Monocytes # 0.7 Eosinophils # 0.1 Basophils # 0.0 Nucleated Red Blood 0.0 Cells # Prothrombin Time 13.3 Prothrombin Time 1.0 Ratio INR International 1.00 Normalized Ratio Activated 35.3 H Partial Thromboplast Time Sodium Level 140 Potassium Level 4.5 Chloride Level 106 Carbon Dioxide Level 24 Anion Gap 10 Blood Urea Nitrogen 11 Creatinine 0.81 Est Glomerular > 60 Filtrat Rate mL/min Glucose Level 131 Calcium Level 9.1 Phosphorus Level 3.9 Magnesium Level 1.9 Creatine Kinase 270 #H Creatine Kinase 3.4 Index Creatinine Kinase MB 9.05 H (Mass) Troponin I 4.160 *H Test 03/17/19 17:13 Bedside Glucose 138 Medications Medications Current Medications IV Flush (NS 3 ml) 3 ml PER PROTOCOL IV ; Start 03/16/19 at 00:30 Ondansetron HCl (Zofran Inj) 4 mg Q6H PRN IV NAUSEA/VOMITING; Start 03/16/19 at 00:30 Nitroglycerin (Nitroglycerin (Sl Tab) 0.4 Mg) 1 tab Q5M PRN SL .CHEST PAIN; Start 03/16/19 at 00:30 Acetaminophen (Tylenol Tab) 650 mg Q6H PRN PO .PAIN 1-3 OR TEMP Last administered on 03/16/19at 13:25; Admin Dose 650 MG; Start 03/16/19 at 00:30 Albuterol/ Ipratropium (Duoneb) 3 ml Q2H RESP THERAPY PRN HHN SHORTNESS OF BREATH; Start 03/16/19 at 00:30 Aspirin (Halfprin) 81 mg DAILY PO Last administered on 03/17/19at 08:19; Admin Dose 81 MG; Start 03/16/19 at 09:00 Isosorbide Dinitrate (Isordil) 10 mg TID PO Last administered on 03/17/19at 13:55; Admin Dose 10 MG; Start 03/16/19 at 09:00 Ranolazine (Ranexa) 500 mg BID PO Last administered on 03/17/19at 08:19; Admin Dose 500 MG; Start 03/16/19 at 09:00 Diagnostic Test (Pha) (Accu-Chek) 1 ea 02 XX ; Start 03/17/19 at 02:00 Insulin Aspart (Novolog Insulin Pen) NOVOLOG *MILD* ALGORITHM WITH MEALS BEDTIME SC Last administered on 03/16/19at 17:29; Admin Dose 1 UNIT; Start 03/16/19 at 07:55 Miscellaneous Information 1 ea NOTE XX ; Start 03/16/19 at 06:30 Glucose (Glutose) 15 gm Q15M PRN PO DECREASED GLUCOSE; Start 03/16/19 at 06:30 Glucose (Glutose) 22.5 gm Q15M PRN PO DECREASED GLUCOSE; Start 03/16/19 at 06:30 Dextrose (D50w Syringe) 25 ml Q15M PRN IV DECREASED GLUCOSE; Start 03/16/19 at 06:30 Dextrose (D50w Syringe) 50 ml Q15M PRN IV DECREASED GLUCOSE; Start 03/16/19 at 06:30 Glucagon (Glucagen) 1 mg Q15M PRN IM DECREASED GLUCOSE; Start 03/16/19 at 06:30 Glucose (Glutose) 15 gm Q15M PRN BUCCAL DECREASED GLUCOSE; Start 03/16/19 at 06:30 Atorvastatin Calcium (Lipitor) 80 mg DAILY@21 PO Last administered on 03/16/19at 20:15; Admin Dose 80 MG; Start 03/16/19 at 21:00 Hydralazine HCl (Apresoline) 10 mg Q6H PRN IV high blood pressure; Start 03/16/19 at 17:30 RONNA ALVAREZ March 17, 2019 19:57
[2019-03-17] MEDS ORDERED: ENOXAPARIN 100 MG/ML SYG SC ONE (20:00)
[2019-03-17] MEDS: ATORVASTATIN 80 MG TAB PO SCH (20:28)
--- NOTE | 2019-03-17 21:48 | RADRPT ---
Vent Rate: 80 bpm RR Interval: 0 msec AK Interval: 158 msec QRS Duration: 96 msec QT Interval: 414 msec QTC Interval: 477 msec P-R-T Jackson: 34 - 54 - 109 degrees Normal sinus rhythm T wave abnormality, consider lateral ischemia Prolonged QT Abnormal ECG Electronically Signed By: Robb Gonzalez
--- NOTE | 2019-03-17 21:48 | RADRPT ---
Vent Rate: 74 bpm RR Interval: 812 msec AL Interval: 163 msec QRS Duration: 89 msec QT Interval: 427 msec QTC Interval: 474 msec P-R-T [place]: 35 - 54 - 121 degrees Sinus rhythm...normal P axis, V-rate 50- 99 Anteroseptal infarct, age indeterminate...Q >35mS, T neg, V1-V2 Lateral wall also involved...lat Q or ST-T abnormalities Electronically Signed By: Robb Gonzalez
[2019-03-18] VITALS (23 sets, daily range): BP systolic 100–120; BP diastolic 52–90; PULSE 60–92; RESP 9–24
[2019-03-18] MEDS: ACCU-CHEK XX SCH (02:00)
[2019-03-18] MEDS: INSULIN ASPART [NOVOLOG] 3 ML PEN SC SCH ×4 (07:55→21:00)
[2019-03-18] MEDS: ASPIRIN (EC) 81 MG TAB PO SCH (08:24)
[2019-03-18] MEDS: ISOSORBIDE DINITRATE 10 MG TAB PO SCH ×3 (08:25→21:58)
[2019-03-18] MEDS: RANOLAZINE (SR) 500 MG TAB PO SCH ×2 (08:25→21:58)
[2019-03-18] MEDS ORDERED: NITROGLYCERIN (IC) 100 MCG/ML INJ ONE (08:42)
[2019-03-18] MEDS ORDERED: FENTAnyl 50 MCG/ML VIAL ONE (08:42)
[2019-03-18] MEDS ORDERED: IODIXANOL LOCM 100 ML BTL ONE (08:42)
[2019-03-18] MEDS ORDERED: MIDAZOLAM 1 MG/ML 2 ML INJ ONE (08:42)
[2019-03-18] MEDS ORDERED: VERAPAMIL 5 MG INJ ONE (08:42)
[2019-03-18] MEDS ORDERED: HEPARIN 1000 UNITS/ML 10 ML INJ ONE (08:42)
[2019-03-18] MEDS ORDERED: LIDOCAINE 1% (MDV) 20 ML INJ ONE (08:42)
[2019-03-18] MEDS ORDERED: TICAGRELOR 90 MG TABLET ONE (10:34)
[2019-03-18] MEDS ORDERED: ASPIRIN 325 MG TAB ONE (10:35)
[2019-03-18] MEDS ORDERED: BIVALIRUDIN 250MG /NS 50 ML 50 ML IVPB ONE (10:45)
[2019-03-18] MEDS ORDERED: SOD CHLORIDE 0.9% 1,000 ML IV SCH (10:55)
[2019-03-18] MEDS ORDERED: AL HYDROX/MG HYDROX/SIMETH 30 ML CUP PO PRN (11:00)
[2019-03-18] MEDS ORDERED: OXYCODONE/ACETAMINOPHEN (5/325) TAB PO PRN (11:00)
[2019-03-18] MEDS ORDERED: ONDANSETRON 4 MG INJ IV PRN (11:00)
[2019-03-18] MEDS ORDERED: ACETAMINOPHEN 325 MG TAB PO PRN (11:00)
--- NOTE | 2019-03-18 11:00 | CONS ---
Assessment/Plan Assessment/Plan Hospital Course (Demo Recall) IMPRESSION: 1. Non-ST elevation myocardial infarction with up trending cardiac enzymes.-downtrending cardiac enzymes 2. Chest pain on admit, currently improved. 3. Abnormal electrocardiogram with anterior T-wave inversions. 4. Hypertension. 5. Dyslipidemia. Recc: -Tele -Continue isordil/ranexa -Contineu statin -start low dose BB as tolerated only -Continue asa -LHC this am with probable PTCA/stent Consultation Date/Type/Reason Admit Date/Time March 15, 2019 at 22:11 Initial Consult Date 03/15/19 Type of Consult Cardiology Reason for Consultation chest pain Requesting Provider: JUS ALMAZAN Date/Time of Note DATE: 03/18/19 TIME: 10:59 Exam/Review of Systems Vital Signs Vitals Vital Signs Date Temp Pulse Resp B/P (MAP) Pulse Ox O2 O2 Flow FiO2 Time Delivery Rate 03/18/19 73 09:15 03/18/19 98.4 19 113/80 97 07:39 (91) 03/18/19 Room Air 04:00 Intake and Output 03/17/19 03/17/19 03/18/19 1515:00 23:00 07:00 IntakeIntake Total 900 ml 400 ml BalanceBalance 900 ml 400 ml Exam Exam Review of Systems: CONSTITUTIONAL: No fevers, chills. PULMONARY: No sob CARDIOVASCULAR: No chest pain/palpitations GASTROINTESTINAL: No nausea/vomiting. GENITOURINARY: No hematuria/dysuria. MUSCULOSKELETAL: No myagias/arthalgias. PSYCHIATRIC: The patient denies depression. NEUROLOGIC: No weakness Constitutional: alert Psych: no complaints Head: normocephalic ENMT: mucosa pink and moist Neck: supple, jvd (9 cm water) Respiratory: diminished breath sounds Cardiovascular: regular rate and rhythm Gastrointestinal: soft, non-tender Musculoskeletal: muscle tone (normal) Extremities: edema (none) Labs Result Diagram: 03/18/19 0556 03/18/19 0556 Results 24hrs Laboratory Tests Test 03/17/19 12:01 03/17/19 17:13 03/17/19 20:26 03/18/19 05:56 Bedside Glucose 122 138 153 White Blood Count 6.0 Red Blood Count 4.42 L Hemoglobin 13.0 L Hematocrit 38.6 L Mean Corpuscular 87.3 Volume Mean Corpuscular 29.4 Hemoglobin Mean Corpuscular 33.7 Hemoglobin Concent Red Cell 11.9 Distribution Width Platelet Count 204 Mean Platelet Volume 9.5 Immature 0.300 Granulocytes % Neutrophils % 63.6 Lymphocytes % 22.3 Monocytes % 11.2 H Eosinophils % 2.3 Basophils % 0.3 Nucleated Red Blood 0.0 Cells % Immature 0.020 Granulocytes # Neutrophils # 3.8 Lymphocytes # 1.3 Monocytes # 0.7 Eosinophils # 0.1 Basophils # 0.0 Nucleated Red Blood 0.0 Cells # Sodium Level 140 Potassium Level 4.3 Chloride Level 106 Carbon Dioxide Level 23 Anion Gap 11 Blood Urea Nitrogen 13 Creatinine 0.83 Est Glomerular > 60 Filtrat Rate mL/min Glucose Level 147 Calcium Level 9.0 Phosphorus Level 4.3 Magnesium Level 2.0 Test 03/18/19 08:21 Bedside Glucose 139 Medications Medications Current Medications IV Flush (NS 3 ml) 3 ml PER PROTOCOL IV ; Start 03/16/19 at 00:30 Ondansetron HCl (Zofran Inj) 4 mg Q6H PRN IV NAUSEA/VOMITING; Start 03/16/19 at 00:30 Nitroglycerin (Nitroglycerin (Sl Tab) 0.4 Mg) 1 tab Q5M PRN SL .CHEST PAIN; Start 03/16/19 at 00:30 Acetaminophen (Tylenol Tab) 650 mg Q6H PRN PO .PAIN 1-3 OR TEMP Last administered on 03/16/19at 13:25; Admin Dose 650 MG; Start 03/16/19 at 00:30 Albuterol/ Ipratropium (Duoneb) 3 ml Q2H RESP THERAPY PRN HHN SHORTNESS OF BREATH; Start 03/16/19 at 00:30 Aspirin (Halfprin) 81 mg DAILY PO Last administered on 03/18/19at 08:24; Admin Dose 81 MG; Start 03/16/19 at 09:00 Isosorbide Dinitrate (Isordil) 10 mg TID PO Last administered on 03/18/19at 08:25; Admin Dose 10 MG; Start 03/16/19 at 09:00 Ranolazine (Ranexa) 500 mg BID PO Last administered on 03/18/19at 08:25; Admin Dose 500 MG; Start 03/16/19 at 09:00 Diagnostic Test (Pha) (Accu-Chek) 1 ea 02 XX ; Start 03/17/19 at 02:00 Insulin Aspart (Novolog Insulin Pen) NOVOLOG *MILD* ALGORITHM WITH MEALS BEDT RIANNA SC Last administered on 03/16/19at 17:29; Admin Dose 1 UNIT; Start 03/16/19 at 07:55 Miscellaneous Information 1 ea NOTE XX ; Start 03/16/19 at 06:30 Glucose (Glutose) 15 gm Q15M PRN PO DECREASED GLUCOSE; Start 03/16/19 at 06:30 Glucose (Glutose) 22.5 gm Q15M PRN PO DECREASED GLUCOSE; Start 03/16/19 at 06:30 Dextrose (D50w Syringe) 25 ml Q15M PRN IV DECREASED GLUCOSE; Start 03/16/19 at 06:30 Dextrose (D50w Syringe) 50 ml Q15M PRN IV DECREASED GLUCOSE; Start 03/16/19 at 06:30 Glucagon (Glucagen) 1 mg Q15M PRN IM DECREASED GLUCOSE; Start 03/16/19 at 06:30 Glucose (Glutose) 15 gm Q15M PRN BUCCAL DECREASED GLUCOSE; Start 03/16/19 at 06:30 Atorvastatin Calcium (Lipitor) 80 mg DAILY@21 PO Last administered on 03/17/19at 20:28; Admin Dose 80 MG; Start 03/16/19 at 21:00 Hydralazine HCl (Apresoline) 10 mg Q6H PRN IV high blood pressure; Start 03/16/19 at 17:30 RONNA ALVAREZ March 18, 2019 10:59
--- NOTE | 2019-03-18 11:01 | SIPON ---
Date/Time of Note Date/Time of Note DATE: 03/18/19 TIME: 11:00 Operative Report Preoperative Diagnosis 1.Nstemi Postoperative Diagnosis 1.obstructive cad s/p stent x 1 to LAD and x 1 to LCX Operation/Procedure Performed 1.[facility] 2.PTCA/stent x 1 to LAD and x1 to LCX Surgeon see signature line assisted living manager 1.elizabeth Anesthesia: moderate sedation Estimated blood loss: minimal Transfusion Required none Specimen none Grafts/Implants none Complications none RONNA ALVAREZ March 18, 2019 11:01
--- NOTE | 2019-03-18 12:32 | PN ---
Date/Time of Note Date/Time of Note DATE: 03/18/19 TIME: 12:31 Assessment/Plan VTE Prophylaxis Risk score (from [facility] [place]0 risk: 3 SCD applied (from [facility] [place]): No SCD contraindicated: other Pharmacological prophylaxis: LMWH Lines/Catheters IV Catheter Type [facility]from [facility] [place] Urinary Cath still in place: No Assessment/Plan Hospital Course S: Patient not able to get left heart cath yesterday, presently off the floor getting left heart cath now. O: VS - see below PE: -Unable to be performed now as patient is presently off the floor at left heart cath procedure Assessment/Plan: 48-year-old male who presents with: 1. NSTEMI-Status post Lovenox treatment x2 thus far, evaluated by cardiology team and awaiting left heart catheter later today (Apparently patient had a negative nuclear stress test 3 weeks ago. 2D echo at that time was preserved EF) -Presently getting left heart cath later today, follow-up post procedure recommendations and further cardiology recommendations -Supplemental oxygen, aspirin, statin, beta-griselda. As needed nitro 2. Type 2 diabetes: Sugars stable, A1c was 6.8 - continue insulin while in-house 3. Hypertension: Presently stable - continue meds. Adjust as needed 4. Dyslipidemia: Continue statin. Result Diagram: 03/18/19 0556 03/18/19 0556 Results 24hrs Laboratory Tests Test 03/17/19 17:13 03/17/19 20:26 03/18/19 05:56 03/18/19 08:21 Bedside Glucose 138 153 139 White Blood Count 6.0 Red Blood Count 4.42 L Hemoglobin 13.0 L Hematocrit 38.6 L Mean Corpuscular 87.3 Volume Mean Corpuscular 29.4 Hemoglobin Mean Corpuscular 33.7 Hemoglobin Concent Red Cell 11.9 Distribution Width Platelet Count 204 Mean Platelet Volume 9.5 Immature 0.300 Granulocytes % Neutrophils % 63.6 Lymphocytes % 22.3 Monocytes % 11.2 H Eosinophils % 2.3 Basophils % 0.3 Nucleated Red Blood 0.0 Cells % Immature 0.020 Granulocytes # Neutrophils # 3.8 Lymphocytes # 1.3 Monocytes # 0.7 Eosinophils # 0.1 Basophils # 0.0 Nucleated Red Blood 0.0 Cells # Sodium Level 140 Potassium Level 4.3 Chloride Level 106 Carbon Dioxide Level 23 Anion Gap 11 Blood Urea Nitrogen 13 Creatinine 0.83 Est Glomerular > 60 Filtrat Rate mL/min Glucose Level 147 Calcium Level 9.0 Phosphorus Level 4.3 Magnesium Level 2.0 Test 03/18/19 11:50 Bedside Glucose 127 Exam/Review of Systems Exam Vitals Vital Signs Date Temp Pulse Resp B/P (MAP) Pulse Ox O2 O2 Flow FiO2 Time Delivery Rate 03/18/19 74 16 106/79 98 Room Air 11:42 (88) 03/18/19 97.5 11:12 Intake and Output 03/17/19 03/17/19 03/18/19 1515:00 23:00 07:00 IntakeIntake Total 900 ml 400 ml BalanceBalance 900 ml 400 ml Results Results 24hrs Laboratory Tests Test 03/17/19 17:13 03/17/19 20:26 03/18/19 05:56 03/18/19 08:21 Bedside Glucose 138 153 139 White Blood Count 6.0 Red Blood Count 4.42 L Hemoglobin 13.0 L Hematocrit 38.6 L Mean Corpuscular 87.3 Volume Mean Corpuscular 29.4 Hemoglobin Mean Corpuscular 33.7 Hemoglobin Concent Red Cell 11.9 Distribution Width Platelet Count 204 Mean Platelet Volume 9.5 Immature 0.300 Granulocytes % Neutrophils % 63.6 Lymphocytes % 22.3 Monocytes % 11.2 H Eosinophils % 2.3 Basophils % 0.3 Nucleated Red Blood 0.0 Cells % Immature 0.020 Granulocytes # Neutrophils # 3.8 Lymphocytes # 1.3 Monocytes # 0.7 Eosinophils # 0.1 Basophils # 0.0 Nucleated Red Blood 0.0 Cells # Sodium Level 140 Potassium Level 4.3 Chloride Level 106 Carbon Dioxide Level 23 Anion Gap 11 Blood Urea Nitrogen 13 Creatinine 0.83 Est Glomerular > 60 Filtrat Rate mL/min Glucose Level 147 Calcium Level 9.0 Phosphorus Level 4.3 Magnesium Level 2.0 Test 03/18/19 11:50 Bedside Glucose 127 Medications Medication Current Medications IV Flush (NS 3 ml) 3 ml PER PROTOCOL IV ; Start 03/16/19 at 00:30 Nitroglycerin (Nitroglycerin (Sl Tab) 0.4 Mg) 1 tab Q5M PRN SL .CHEST PAIN; Start 03/16/19 at 00:30 Acetaminophen (Tylenol Tab) 650 mg Q6H PRN PO ELEVATED TEMPERATURE Last administered on 03/16/19at 13:25; Admin Dose 650 MG; Start 03/16/19 at 00:30 Albuterol/ Ipratropium (Duoneb) 3 ml Q2H RESP THERAPY PRN HHN SHORTNESS OF BREATH; Start 03/16/19 at 00:30 Aspirin (Halfprin) 81 mg DAILY PO Last administered on 03/18/19at 08:24; Admin Dose 81 MG; Start 03/16/19 at 09:00 Isosorbide Dinitrate (Isordil) 10 mg TID PO Last administered on 03/18/19 08:25; Admin Dose 10 MG; Start 03/16/19 at 09:00 Ranolazine (Ranexa) 500 mg BID PO Last administered on 03/18/19 08:25; Admin Dose 500 MG; Start 03/16/19 at 09:00 Diagnostic Test (Pha) (Accu-Chek) 1 ea 02 XX ; Start 03/17/19 at 02:00 Insulin Aspart (Novolog Insulin Pen) NOVOLOG *MILD* ALGORITHM WITH MEALS BEDTIME SC Last administered on 03/16/19at 17:29; Admin Dose 1 UNIT; Start 03/16 at 07:55 Miscellaneous Information 1 ea NOTE XX ; Start 03/16/19 at 06:30 Glucose (Glutose) 15 gm Q15M PRN PO DECREASED GLUCOSE; Start 03/16/19 at 06:30 Glucose (Glutose) 22.5 gm Q15M PRN PO DECREASED GLUCOSE; Start 03/16/19 at 06:30 Dextrose (D50w Syringe) 25 ml Q15M PRN IV DECREASED GLUCOSE; Start 03/16/19 at 06:30 Dextrose (D50w Syringe) 50 ml Q15M PRN IV DECREASED GLUCOSE; Start 03/16/19 at 06:30 Glucagon (Glucagen) 1 mg Q15M PRN IM DECREASED GLUCOSE; Start 03/16/19 at 06:30 Glucose (Glutose) 15 gm Q15M PRN BUCCAL DECREASED GLUCOSE; Start 03/16/19 at 06:30 Atorvastatin Calcium (Lipitor) 80 mg DAILY@21 PO Last administered on 03/17/19at 20:28; Admin Dose 80 MG; Start 03/16/19 at 21:00 Hydralazine HCl (Apresoline) 10 mg Q6H PRN IV high blood pressure; Start 03/16/19 at 17:30 Ticagrelor (Brilinta) 90 mg BID PO ; Start 03/18/19 at 21:00 Acetaminophen (Tylenol Tab) 650 mg Q4H PRN PO NON-CARDIAC PAIN LEVEL 1-3; Start 03/18/19 at 11:00 Oxycodone/ Acetaminophen (Percocet (5/ 325)) 1 tab Q4H PRN PO PAIN; Start 03/18/19 at 11:00 Al Hydrox/Mg Hydrox/Simethicone (Mag-Al Plus) 30 ml Q4H PRN PO GASTROINTESTINAL UPSET; Start 03/18/19 at 11:00 Ondansetron HCl (Zofran Inj) 4 mg Q4H PRN IV NAUSEA AND/OR VOMITING; Start 03/18/19 at 11:00 Sodium Chloride 1,000 ml @ 75 mls/hr [id number] IV Last administered on 03/18/19at 11:34; Admin Dose 75 MLS/HR; Start 03/18/19 at 10:55; Stop 03/19/19 at 00:14 JUS ALMAZAN March 18, 2019 12:32
[2019-03-18] MEDS: ATORVASTATIN 80 MG TAB PO SCH (21:26)
[2019-03-18] MEDS: TICAGRELOR 90 MG TABLET PO SCH (21:27)
[2019-03-19] VITALS (15 sets, daily range): BP systolic 95–118; BP diastolic 67–100; PULSE 72–89; RESP 9–23
[2019-03-19] MEDS: ACCU-CHEK XX SCH (02:00)
[2019-03-19] MEDS: INSULIN ASPART [NOVOLOG] 3 ML PEN SC SCH ×2 (07:35→12:21)
[2019-03-19] MEDS: ISOSORBIDE DINITRATE 10 MG TAB PO SCH ×2 (08:42→12:52)
[2019-03-19] MEDS: TICAGRELOR 90 MG TABLET PO SCH (08:46)
[2019-03-19] MEDS: ASPIRIN (EC) 81 MG TAB PO SCH (08:47)
[2019-03-19] MEDS: RANOLAZINE (SR) 500 MG TAB PO SCH (08:47)
[2019-03-19] MEDS ORDERED: ASPIRIN (EC) 81 MG TAB PO SCH (09:00)
--- NOTE | 2019-03-19 10:02 | CARRPT ---
DATE OF PROCEDURE: 03/18/2019 TYPE OF PROCEDURES: 1. Left heart catheterization. 2. Coronary angiography. 3. Percutaneous transluminal coronary angioplasty with placement of a drug- eluting stent x1 to proximal LAD, 3.0 x 28 mm. 4. Percutaneous transluminal contrast with placement of drug-eluting stent x1 to mid circumflex 3.5 x 18 mm. 5. Moderate conscious sedation. ATTENDING PHYSICIAN: Dr. Ronna Gonzalez. REFERRING PHYSICIAN: Bladimir Chirinos from hospitalist service. INDICATION: Non-ST elevation myocardial infarction. TYPE OF ANESTHESIA: Conscious and local. BRIEF HISTORY AND HOSPITAL COURSE: Mr. Mcconnell is a 48-year-old male with history of hypertension, dyslipidemia who initially presented with complaints of substernal chest pain, ruled in for a non-ST elevation myocardial infarction. Patient subsequently placed on medical therapy. He was brought to cardiac wharf labourer in order to assess for possibility of significant obstructive coronary artery disease lending to chest pain. Admit to the hospital, with a non-ST elevation myocardial infarction. PROCEDURE: After informed consent was obtained, the patient was brought to the [facility] cardiac catheterization lab where his right radial area was prepped and draped in the usual sterile fashion, 2% lidocaine was infiltrated to the right radial area to achieve adequate local anesthesia in the modified Seldinger technique, the radial artery was cannulated and a 6-Ecuadorean arterial sheath was placed. A 6-Ecuadorean JL3.5 catheter was used to cannulate the left main coronary ostium. With contrast injection, multiple views of left coronary system were obtained. JL3.5 removed over guidewire and a JR4 was used to cannulate the right coronary arterial ostium. With contrast injection mutiple views of the rca were taken. JR4 was removed over a guidewire. The pigtail was passed into aorta placed in LV. LVEDP was measured, pull back across the aortic valve to assess for significant gradient, which was not and removed. Subsequently, at this time, we moved directly into an interventional;procedure. The patient received Angiomax bolus continuous infusion. A Q3 guide was used to cannulate the left main coronary ostium. A Pelletizer Tender 50 guidewire was passed distal to the lesion in the LAD. The lesion was pretreated with a 2.0 x 20 mm balloon inflated to 16-18 atmospheres x3. This was removed and the lesion was stented with a 3.0 x 28 mm drug-eluting stent deployed at 16 atmospheres, post-dilated with the stent delivery ballonn x2 in the wound was removed. Followup angiogram was obtained with excellent result, for placement of stent. Brian 3 flow. No signs of complication including perforation, dissection and no plaque shift into a sizable diagonal that bifurcates just in the distal portion of the stent. At this time, the wire was pulled back and then redirected down the circumflex to the circumflex lesion. The second lesion was predilated with a 3.0 x 12 mm balloon up to 18 to 20 atmospheres and the balloon was removed and subsequently the lesion was then stented with a 3.5 x 18 mm drug-eluting stent deployed at 16 atms and then post dilated. Stent balloon was removed and since it was a small waist, we with the tightest postdilated with a noncompliant 4.0 x 12 mm balloon was placed in the midportion of the stent and inflated to 18 atmospheres x2. The noncompliant balloon was removed. Followup angiogram was obtained revealing BRIAN 3 throughout the vessel, no signs of complication including perforation or dissection. Subsequently, at this time, the patient was given 200 mcg IC nitroglycerin Further followup angiograms were taken, revealing excellent result for placement of stents. The guide and guidewires were removed. The patient's sheath was removed. TR band applied. This completed the procedure. There were no noted complications. FINDINGS: 1. Coronary angiography: Left main short 4.5 mm, no significant stenosis. Circumflex proximally is a 3.5 mm vessel in its midportion, has a very focal 70% to 80% stenosis. Circumflex is a distal branching obtuse marginal has an approximately 50% stenosis and then a second branch has a 3 mm in a 3 mm vessel with no significant focal stenoses. There also exists a mid-branching ramus main mid branching obtuse marginal 2.5 mm, no significant focal stenoses. LAD proximally is a 3.5 mm vessel and has a long tubular lesion extending to the first diagonal with BRIAN 2 flow sluggish becoming BRIAN 1 to 2 flow function coming down the LAD, there is a sizable diagonal that bifurcates just midway through this 3 mm with no significant focal stenoses. The patient's right coronary proximally is a 3 mm vessel, has no significant focal stenosis artery is dominant vessel and therefore gives off a 2.5 mm PDA with mild irregularities of 10% to 20%. Measurement of LVEDP of 18 to 21. PTCA and stent placement: Prior to PTCA and stent placement within the patient's proximal LAD, had a tubular lesion up to 99%. Post-PTCA and stent placement, no residual stenosis, BRIAN 3 flow throughout the vessel and no signs of complication including perforation or dissection. Prior to PTCA and stent placement within the patient's circumflex, the patient had a 70-80% stenosis. Post-PTCA and stent placement, the patient had no residual stenosis, BRIAN 3 flow at the vessel, no signs of complication including perforation or dissection. TOTAL FLUOROSCOPY TIME: 14.2 minutes. TOTAL CONTRAST: 160 mL. IMPRESSION: 1. Two-vessel obstructive coronary artery disease involving a long lesion in the proximal LAD 99% subtotal occlusion status post successful SUBSCRIPTION CLERK and stent placement x1 drug-eluting stent and a second high-grade lesion in the mid cervix status post PT and stent placement x1 with drug-eluting stent. 2. Mildly elevated left heart filling pressures. 3. No significant aortic stenosis by gradient. RECOMMENDATIONS: In light of procedure findings at this time would: 1. Maintain patient on Brilinta 90 mg 1 tab p.o. b.i.d. for at least 1 year. The patient has been loaded on 180 x1 here and continue the patient on aspirin 81 mg 1 tab p.o. daily indefinitely. After patient has had 325 mg load here. 2. Maximize medical management. 3. Aggressive risk factor reduction. 4. The patient will be readmitted to the telemetry floor for post- catheterization with probable discharge the following day. Dictated By: RONNA WOMACK/MAGO Conf#: [id number] DID#: [id number] CC: BREA SINGH MD;*EndCC* MTDD
--- NOTE | 2019-03-19 10:21 | PN ---
Date/Time of Note Date/Time of Note DATE: 03/19/19 TIME: 10:15 Assessment/Plan VTE Prophylaxis Risk score (from Nsg)>0 risk: 4 SCD applied (from Nsg): Yes SCD contraindicated: low risk/ambulating Pharmacological prophylaxis: other Lines/Catheters IV Catheter Type (from Nrsg): Peripheral IV Urinary Cath still in place: No Assessment/Plan Hospital Course S: Patient had left heart cath yesterday with stent placement x2 yesterday. Gaines some slight chest discomfort this morning but otherwise no fever chills, no overt chest pain or shortness of breath. O: VS - see below PE: Gen: No acute distress. Head: Atraumatic. Eyes: Normal Conjunctiva. ENT: Normal External Ears, Nose and Mouth. Neck: Full range of motion. No meningismus. Resp: Clear to auscultation bilaterally. Cardio: Regular rate and rhythm. Abd: Soft, non distended, normal bowel sounds, non tender. Ext: No cyanosis, or edema. Neuro: Awake and alert. No focal deficit Left heart cath March 18, 2019: IMPRESSION: 1. Two-vessel obstructive coronary artery disease involving a long lesion in the proximal LAD 99% subtotal occlusion status post successful ETHANOL OPERATIONS MANAGER and stent placement x1 drug-eluting stent and a second high-grade lesion in the mid cervix status post PT and stent placement x1 with drug-eluting stent. 2. Mildly elevated left heart filling pressures. 3. No significant aortic stenosis by gradient. Assessment/Plan: 48-year-old male who presents with: 1. NSTEMI-Status post Lovenox treatment on admission, status post left heart cath with LAD blockage found stent placement x2 performed. -For now continue Brilinta per cardiology recommendations and other cardiac meds, follow-up post procedure recommendations and further cardiology recommendations -Supplemental oxygen, aspirin, statin, beta-griselda. As needed nitro 2. Type 2 diabetes: Sugars stable, A1c was 6.8 - continue insulin while in-house 3. Hypertension: Presently stable - continue meds. Adjust as needed 4. Dyslipidemia: Continue statin. Dispo: Likely home today or in 24 hours once cleared by cardiology team. Critical care time spent on patient care today equals 45 minutes. Result Diagram: 03/19/19 0540 03/19/19 0540 Results 24hrs Laboratory Tests Test 03/18/19 11:50 03/18/19 17:13 03/18/19 22:00 03/18/19 22:58 Bedside Glucose 127 115 244 H 140 Test 03/19/19 05:40 03/19/19 07:28 White Blood Count 7.7 # Red Blood Count 4.24 L Hemoglobin 12.4 L Hematocrit 37.0 L Mean Corpuscular 87.3 Volume Mean Corpuscular 29.2 Hemoglobin Mean Corpuscular 33.5 Hemoglobin Concent Red Cell 11.9 Distribution Width Platelet Count 198 Mean Platelet Volume 9.8 Immature 0.300 Granulocytes % Neutrophils % 71.2 Lymphocytes % 16.9 Monocytes % 9.8 Eosinophils % 1.7 Basophils % 0.1 Nucleated Red Blood 0.0 Cells % Immature 0.020 Granulocytes # Neutrophils # 5.5 Lymphocytes # 1.3 Monocytes # 0.8 Eosinophils # 0.1 Basophils # 0.0 Nucleated Red Blood 0.0 Cells # Sodium Level 140 Potassium Level 4.2 Chloride Level 106 Carbon Dioxide Level 23 Anion Gap 11 Blood Urea Nitrogen 11 Creatinine 0.86 Est Glomerular > 60 Filtrat Rate mL/min Glucose Level 137 Calcium Level 9.1 Bedside Glucose 135 Exam/Review of Systems Exam Vitals Vital Signs Date Temp Pulse Resp B/P (MAP) Pulse Ox O2 O2 Flow FiO2 Time Delivery Rate 03/19/19 88 16 112/87 96 Room Air 07:00 (95) 03/19/19 98.6 04:00 Intake and Output 03/18/19 03/18/19 03/19/19 1515:00 23:00 07:00 IntakeIntake Total 475 ml 150 ml OutputOutput Total 200 ml BalanceBalance 275 ml 150 ml Results Results 24hrs Laboratory Tests Test 03/18/19 11:50 03/18/19 17:13 03/18/19 22:00 03/18/19 22:58 Bedside Glucose 127 115 244 H 140 Test 03/19/19 05:40 03/19/19 07:28 White Blood Count 7.7 # Red Blood Count 4.24 L Hemoglobin 12.4 L Hematocrit 37.0 L Mean Corpuscular 87.3 Volume Mean Corpuscular 29.2 Hemoglobin Mean Corpuscular 33.5 Hemoglobin Concent Red Cell 11.9 Distribution Width Platelet Count 198 Mean Platelet Volume 9.8 Immature 0.300 Granulocytes % Neutrophils % 71.2 Lymphocytes % 16.9 Monocytes % 9.8 Eosinophils % 1.7 Basophils % 0.1 Nucleated Red Blood 0.0 Cells % Immature 0.020 Granulocytes # Neutrophils # 5.5 Lymphocytes # 1.3 Monocytes # 0.8 Eosinophils # 0.1 Basophils # 0.0 Nucleated Red Blood 0.0 Cells # Sodium Level 140 Potassium Level 4.2 Chloride Level 106 Carbon Dioxide Level 23 Anion Gap 11 Blood Urea Nitrogen 11 Creatinine 0.86 Est Glomerular > 60 Filtrat Rate mL/min Glucose Level 137 Calcium Level 9.1 Bedside Glucose 135 Medications Medication Current Medications IV Flush (NS 3 ml) 3 ml PER PROTOCOL IV ; Start 03/16/19 at 00:30 Nitroglycerin (Nitroglycerin (Sl Tab) 0.4 Mg) 1 tab Q5M PRN SL .CHEST PAIN; Start 03/16/19 at 00:30 Acetaminophen (Tylenol Tab) 650 mg Q6H PRN PO ELEVATED TEMPERATURE Last administered on 03/16/19at 13:25; Admin Dose 650 MG; Start 03/16/19 at 00:30 Albuterol/ Ipratropium (Duoneb) 3 ml Q2H RESP THERAPY PRN HHN SHORTNESS OF BREATH; Start 03/16/19 at 00:30 Aspirin (Halfprin) 81 mg DAILY PO Last administered on 03/19/19 08:47; Admin Dose 81 MG; Start 03/16/19 at 09:00 Isosorbide Dinitrate (Isordil) 10 mg TID PO Last administered on 03/19/19 08:42; Admin Dose 10 MG; Start 03/16/19 at 09:00 Ranolazine (Ranexa) 500 mg BID PO Last administered on 03/19/19at 08:47; Admin Dose 500 MG; Start 03/16/19 at 09:00 Diagnostic Test (Pha) (Accu-Chek) 1 ea 02 XX ; Start 03/17/19 at 02:00 Insulin Aspart (Novolog Insulin Pen) NOVOLOG *MILD* ALGORITHM WITH MEALS BEDTIME SC Last administered on 03/16/19at 17:29; Admin Dose 1 UNIT; Start 03/16/19 at 07:55 Miscellaneous Information 1 ea NOTE XX ; Start 03/16/19 at 06:30 Glucose (Glutose) 15 gm Q15M PRN PO DECREASED GLUCOSE; Start 03/16/19 at 06:30 Glucose (Glutose) 22.5 gm Q15M PRN PO DECREASED GLUCOSE; Start 03/16/19 at 06:30 Dextrose (D50w Syringe) 25 ml Q15M PRN IV DECREASED GLUCOSE; Start 03/16/19 at 06:30 Dextrose (D50w Syringe) 50 ml Q15M PRN IV DECREASED GLUCOSE; Start 03/16/19 at 06:30 Glucagon (Glucagen) 1 mg Q15M PRN IM DECREASED GLUCOSE; Start 03/16/19 at 06:30 Glucose (Glutose) 15 gm Q15M PRN BUCCAL DECREASED GLUCOSE; Start 03/16/19 at 06:30 Atorvastatin Calcium (Lipitor) 80 mg DAILY@21 PO Last administered on 03/18/19at 21:26; Admin Dose 80 MG; Start 03/16/19 at 21:00 Hydralazine HCl (Apresoline) 10 mg Q6H PRN IV high blood pressure; Start 03/16/19 at 17:30 Ticagrelor (Brilinta) 90 mg BID PO Last administered on 03/19/19at 08:46; Admin Dose 90 MG; Start 03/18/19 at 21:00 Acetaminophen (Tylenol Tab) 650 mg Q4H PRN PO NON-CARDIAC PAIN LEVEL 1-3; Start 03/18/19 at 11:00 Oxycodone/ Acetaminophen (Percocet (5/ 325)) 1 tab Q4H PRN PO PAIN; Start 03/18/19 at 11:00 Al Hydrox/Mg Hydrox/Simethicone (Mag-Al Plus) 30 ml Q4H PRN PO GASTROINTESTINAL UPSET; Start 03/18/19 at 11:00 Ondansetron HCl (Zofran Inj) 4 mg Q4H PRN IV NAUSEA AND/OR VOMITING; Start 03/18/19 at 11:00 JUS ALMAZAN March 19, 2019 10:21
--- NOTE | 2019-03-19 12:34 | CONS ---
Assessment/Plan Assessment/Plan Hospital Course (Demo Recall) IMPRESSION: 1. Non-ST elevation myocardial infarction with up trending cardiac enzymes.-downtrending cardiac enzymes. NOw post-op s/p PTCA stent x 1 to LAD and x 1 to LCX 2. Chest pain on admit, currently improved s/p stenting 3. Abnormal electrocardiogram with anterior T-wave inversions. 4. Hypertension. 5. Dyslipidemia. Recc: -IN ICU. OK for d/c today from cardiac standpoint -Continue isordil/ranexa for now but may not require anymore s/p stenting -Contineu statin -consider blow dose BB as tolerated -Continue asa and brilinta -outpatient f/u 2-3 weeks Consultation Date/Type/Reason Admit Date/Time March 15, 2019 at 22:11 Initial Consult Date 03/15/19 Type of Consult Cardiology Reason for Consultation Nstemi Requesting Provider: JUS ALMAZAN Date/Time of Note DATE: 03/19/19 TIME: 12:30 Exam/Review of Systems Vital Signs Vitals Vital Signs Date Temp Pulse Resp B/P (MAP) Pulse Ox O2 O2 Flow FiO2 Time Delivery Rate 03/19/19 72 20 106/80 96 Room Air 11:00 (89) 03/19/19 98.6 08:00 Intake and Output 03/18/19 03/18/19 03/19/19 1515:00 23:00 07:00 IntakeIntake Total 475 ml 150 ml OutputOutput Total 200 ml BalanceBalance 275 ml 150 ml Exam Exam Review of Systems: CONSTITUTIONAL: No fevers, chills. PULMONARY: No sob CARDIOVASCULAR: No chest pain/palpitations GASTROINTESTINAL: No nausea/vomiting. GENITOURINARY: No hematuria/dysuria. MUSCULOSKELETAL: No myagias/arthalgias. PSYCHIATRIC: The patient denies depression. NEUROLOGIC: No weakness Constitutional: alert Psych: no complaints Head: normocephalic ENMT: mucosa pink and moist Neck: supple, jvd (9 cm water) Respiratory: clear to auscultation Cardiovascular: regular rate and rhythm Gastrointestinal: soft, non-tender Musculoskeletal: muscle tone (normal) Extremities: edema (none), other (R wrist with normal pulse/no sig ecchymosis or bledding) Neurological: other (No focal deficits) Labs Result Diagram: 03/19/19 0540 03/19/19 0540 Results 24hrs Laboratory Tests Test 03/18/19 17:13 03/18/19 22:00 03/18/19 22:58 03/19/19 05:40 Bedside Glucose 115 244 H 140 White Blood Count 7.7 # Red Blood Count 4.24 L Hemoglobin 12.4 L Hematocrit 37.0 L Mean Corpuscular 87.3 Volume Mean Corpuscular 29.2 Hemoglobin Mean Corpuscular 33.5 Hemoglobin Concent Red Cell 11.9 Distribution Width Platelet Count 198 Mean Platelet Volume 9.8 Immature 0.300 Granulocytes % Neutrophils % 71.2 Lymphocytes % 16.9 Monocytes % 9.8 Eosinophils % 1.7 Basophils % 0.1 Nucleated Red Blood 0.0 Cells % Immature 0.020 Granulocytes # Neutrophils # 5.5 Lymphocytes # 1.3 Monocytes # 0.8 Eosinophils # 0.1 Basophils # 0.0 Nucleated Red Blood 0.0 Cells # Sodium Level 140 Potassium Level 4.2 Chloride Level 106 Carbon Dioxide Level 23 Anion Gap 11 Blood Urea Nitrogen 11 Creatinine 0.86 Est Glomerular > 60 Filtrat Rate mL/min Glucose Level 137 Calcium Level 9.1 Test 03/19/19 07:28 03/19/19 12:13 Bedside Glucose 135 187 Medications Medications Current Medications IV Flush (NS 3 ml) 3 ml PER PROTOCOL IV ; Start 03/16/19 at 00:30 Nitroglycerin (Nitroglycerin (Sl Tab) 0.4 Mg) 1 tab Q5M PRN SL .CHEST PAIN; Start 03/16/19 at 00:30 Acetaminophen (Tylenol Tab) 650 mg Q6H PRN PO ELEVATED TEMPERATURE Last administered on 03/16/19at 13:25; Admin Dose 650 MG; Start 03/16/19 at 00:30 Albuterol/ Ipratropium (Duoneb) 3 ml Q2H RESP THERAPY PRN HHN SHORTNESS OF BREATH; Start 03/16/19 at 00:30 Aspirin (Halfprin) 81 mg DAILY PO Last administered on 03/19/19at 08:47; Admin Dose 81 MG; Start 03/16/19 at 09:00 Isosorbide Dinitrate (Isordil) 10 mg TID PO Last administered on 03/19/19at 08:42; Admin Dose 10 MG; Start 03/16/19 at 09:00 Ranolazine (Ranexa) 500 mg BID PO Last administered on 03/19/19at 08:47; Admin Dose 500 MG; Start 03/16/19 at 09:00 Diagnostic Test (Pha) (Accu-Chek) 1 ea 02 XX ; Start 03/17/19 at 02:00 Insulin Aspart (Novolog Insulin Pen) NOVOLOG *MILD* ALGORITHM WITH MEALS BEDTIME SC Last administered on 03/19/19at 12:21; Admin Dose 2 UNIT; Start 03/16/19 at 07:55 Miscellaneous Information 1 ea NOTE XX ; Start 03/16/19 at 06:30 Glucose (Glutose) 15 gm Q15M PRN PO DECREASED GLUCOSE; Start 03/16/19 at 06:30 Glucose (Glutose) 22.5 gm Q15M PRN PO DECREASED GLUCOSE; Start 03/16/19 at 06:30 Dextrose (D50w Syringe) 25 ml Q15M PRN IV DECREASED GLUCOSE; Start 03/16/19 at 06:30 Dextrose (D50w Syringe) 50 ml Q15M PRN IV DECREASED GLUCOSE; Start 03/16/19 at 06:30 Glucagon (Glucagen) 1 mg Q15M PRN IM DECREASED GLUCOSE; Start 03/16/19 at 06:30 Glucose (Glutose) 15 gm Q15M PRN BUCCAL DECREASED GLUCOSE; Start 03/16/19 at 06:30 Atorvastatin Calcium (Lipitor) 80 mg DAILY@21 PO Last administered on 03/18/19at 21:26; Admin Dose 80 MG; Start 03/16/19 at 21:00 Hydralazine HCl (Apresoline) 10 mg Q6H PRN IV high blood pressure; Start 03/16/19 at 17:30 Ticagrelor (Brilinta) 90 mg BID PO Last administered on 03/19/19at 08:46; Admin Dose 90 MG; Start 03/18/19 at 21:00 Acetaminophen (Tylenol Tab) 650 mg Q4H PRN PO NON-CARDIAC PAIN LEVEL 1-3; Start 03/18/19 at 11:00 Oxycodone/ Acetaminophen (Percocet (5/ 325)) 1 tab Q4H PRN PO PAIN; Start 03/18/19 at 11:00 Al Hydrox/Mg Hydrox/Simethicone (Mag-Al Plus) 30 ml Q4H PRN PO GASTROINTESTINAL UPSET; Start 03/18/19 at 11:00 Ondansetron HCl (Zofran Inj) 4 mg Q4H PRN IV NAUSEA AND/OR VOMITING; Start 03/18/19 at 11:00 RONNA ALVAREZ March 19, 2019 12:34
--- NOTE | 2019-03-19 15:25 | PDOCDIS ---
Discharge Instructions CONDITION [id number] Patient Condition: [id number] Stable HOME CARE INSTRUCTIONS: [id number] Diet Instructions: [id number] Low Fat /Cholesterol ACTIVITY: [id number] Activity Restrictions: [id number] Slowly Increase Activity Rest between Activity Avoid heavy lifting FOLLOW UP/APPOINTMENTS Follow-up Plan Please take your medication as prescribed, see your doctor in clinic in the next 1 week. JUS ALMAZAN March 19, 2019 15:25
[2019-03-19] MEDS ORDERED: TICA90TA PO (15:26)
[2019-03-19] MEDS ORDERED: METO-448 PO (15:26)
[2019-03-19] MEDS ORDERED: ATOR40TA68 PO (15:28)
--- NOTE | 2019-03-19 15:32 | DS ---
Date/Time of Note Date/Time of Note DATE: 03/19/19 TIME: 15:29 Discharge Summary Admission/Discharge Info Admit Date/Time March 15, 2019 at 22:11 Discharge Date/Time Discharge Diagnosis 1. NSTEMI-Status post Lovenox treatment on admission, status post left heart cath with LAD blockage found stent placement x2 performed. 2. Type 2 diabetes: Sugars stable, A1c was 6.8 3. Hypertension: Presently stable 4. Dyslipidemia: Continue statin. Patient Condition: Stable Procedures Left heart cath March 18, 2019: IMPRESSION: 1. Two-vessel obstructive coronary artery disease involving a long lesion in th e proximal LAD 99% subtotal occlusion status post successful MANAGER EMBALMER FUNERAL DIRECTOR and stent placement x1 drug-eluting stent and a second high-grade lesion in the mid cervix status post PT and stent placement x1 with drug-eluting stent. 2. Mildly elevated left heart filling pressures. 3. No significant aortic stenosis by gradient. Hx of Present Illness 48-year-old male with a history of hypertension, type 2 diabetes, dyslipidemia who presents the ER complaining of chest pain. Patient was admitted here 3 weeks ago for chest pain. At that time troponin was negative. 2D echo with preserved EF. Nuclear stress test was negative. He was having chest pain intermittently for the past 2 weeks or so. When he presented to the ER, his initial troponin was 1. Patient was given treatment dose of Lovenox. EKG nonspecific ST-T wave abnormalities, no ST elevation. Hospital Course Patient was admitted and found with non-ST elevation NC. He received Lovenox treatment. He underwent left heart cath and LAD blockage was found to stent placement was performed. Patient tolerated the procedure well. Afterwards patient's sugars were monitored, A1c is found to be 6.8, sugars were stable. He was able to ambulate, tolerated p.o. diet. After getting clearance from the cardiology team patient will be discharged home today and perfused. See below for full list of discharge medication which includes aspirin and Brilinta and beta-griselda and statin. Home Meds Active Scripts Atorvastatin* (Atorvastatin*) 40 Mg Tablet, 40 MG PO QHS, #30 TAB Prov:JUS ALMAZAN S. 03/19/19 Metoprolol Tartrate* (Lopressor*) 25 Mg Tab, 12.5 MG PO BID, #60 TAB 5 Refills Prov:RANIKOS DA SILVAJUS S. 03/19/19 Ticagrelor* (Brilinta*) 90 Mg Tablet, 90 MG PO BID, #60 TAB 8 Refills Prov:JUS ALMAZAN S. 03/19/19 Aspirin Delayed Release (Aspirin Delayed Release) 81 Mg Tablet.dr, 81 MG PO DAILY, #30 TAB 2 Refills Prov:EMMA KIDD. 02/24/19 Isosorbide Dinitrate* (Isordil*) 10 Mg Tablet, 10 MG PO TID, #90 TAB 2 Refills Prov:EMMA KIDD M. 02/24/19 Reported Medications Ranolazine* (Ranexa*) 500 Mg Tab.sr.12h, 500 MG PO BID for 30 Days, #60 03/16/19 Linagliptin/Metformin HCl (Jentadueto Xr 2.5 mg-1,000 mg) 1 Each Tab.bp.24h, 1 EACH PO QAM, TAB 02/23/19 Discontinued Reported Medications Lisinopril* (Lisinopril*) 10 Mg Tablet, 10 MG PO DAILY, #30 TAB 02/23/19 Follow-up Plan Please take your medication as prescribed, see your doctor in clinic in the next 1 week. Primary Care Provider Not On Staff Doctor Time spent on discharge: > 30 minutes Pending Labs Laboratory Tests Test 03/18/19 17:13 03/18/19 22:00 03/18/19 22:58 03/19/19 05:40 Bedside 115 244 140 Glucose mg/dL (70-220) mg/dL (70-220) mg/dL (70-220) White Blood 7.7 Count 10^3/ul (4.8-1 0.8) Red Blood 4.24 Count 10^6/ul (4.70- 6.10) Hemoglobin 12.4 g/dl (14.0-18. 0) Hematocrit 37.0 % (42.0-52.0) Mean 87.3 Corpuscular fl (82.0-101.0 Volume ) Mean 29.2 Corpuscular pg (29.0-33.0) Hemoglobin Mean 33.5 Corpuscular g/dl (32.0-37. Hemoglobin Conc 0) ent Red Cell 11.9 Distribution % (11.5-14.5) Width Platelet Count 198 10^3/UL (140-4 15) Mean Platelet 9.8 Volume fl (7.4-10.4) Immature 0.300 Granulocytes % % (0.001-0.429 ) Neutrophils % 71.2 % (39.0-77.0) Lymphocytes % 16.9 % (15.0-51.0) Monocytes % 9.8 % (0.0-11.0) Eosinophils % 1.7 % (0.0-7.0) Basophils % 0.1 % (0.0-2.0) Nucleated Red 0.0 Blood Cells % /100WBC (0.0-0 .0) Immature 0.020 Granulocytes # 10^3/ul (0.0-0 .031) Neutrophils # 5.5 10^3/ul (1.6-7 .5) Lymphocytes # 1.3 10^3/ul (0.8-2 .9) Monocytes # 0.8 10^3/ul (0.3-0 .9) Eosinophils # 0.1 10^3/ul (0.0-0 .5) Basophils # 0.0 10^3/ul (0.0-0 .1) Nucleated Red 0.0 Blood Cells # 10^3/ul (0.0-0 .0) Sodium Level 140 mmol/L (135-14 4) Potassium 4.2 Level mmol/L (3.5-5. 1) Chloride Level 106 mmol/L (97-110 ) Carbon Dioxide 23 Level mmol/L (21-31) Anion Gap 11 (5-13) Blood Urea 11 Nitrogen mg/dl (7-20) Creatinine 0.86 mg/dl (0.61-1. 24) Est Glomerular > 60 Filtrat mL/min (>60) Rate mL/min Glucose Level 137 mg/dl (70-220) Calcium Level 9.1 mg/dl (8.4-10. 2) Test 03/19/19 07:28 03/19/19 12:13 Bedside 135 187 Glucose mg/dL (70-220) mg/dL (70-220) JUS ALMAZAN March 19, 2019 15:32
--- NOTE | 2019-03-19 20:25 | RADRPT ---
Vent Rate: 69 bpm RR Interval: 864 msec [place] Interval: 160 msec QRS Duration: 102 msec QT Interval: 413 msec QTC Interval: 444 msec P-R-T [place]: 33 - 122 - 100 degrees Sinus rhythm...normal P axis, V-rate 50- 99 Anteroseptal infarct, age indeterminate...Q >35mS, T neg, V1-V2 Electronically Signed By: Robb Gonzalez
[2019-03-19] MEDS ORDERED: METOPROLOL 25 MG TAB PO SCH (21:00)
== END 2019-03-19 15:55 | disposition home or self-care (01) | DRG 247 ==
LOC: E/R 18:49 → TEL 22:11 → ICU 03-18 20:30
PROVIDERS: ADMIT Internal Medicine; ATTEND Hospitalist
PROC: B211YZZ Fluoroscopy of Multiple Coronary Arteries using Other Contrast (ICD-10-PCS; 2019-03-18)
PROC: 4A023N7 Measurement of Cardiac Sampling and Pressure, Left Heart, Percutaneous Approach (ICD-10-PCS; principal; 2019-03-18 09:00)
PROC: 027135Z Dilation of Coronary Artery, Two Arteries with Two Drug-eluting Intraluminal Devices, Percutaneous Approach (ICD-10-PCS; 2019-03-18 09:00)
DX: I21.4 Non-ST elevation (NSTEMI) myocardial infarction (principal); E11.8 Type 2 diabetes mellitus with unspecified complications; E78.5 Hyperlipidemia, unspecified; I10 Essential (primary) hypertension; I25.10 Atherosclerotic heart disease of native coronary artery without angina pectoris
CPT/HCPCS: 36415; 71045; 80048; 80053; 80061; 82550; 82553; 82962; 83036; 83735; 84100; 84443; 84484; 85025; 85610; 85730; 87081; 92928; 92929; 93005; 93458; 96372; C1725; C1874; C1887; J0583; J1644; J1650; J1815; J2250; J3010; J7030; Q9967